=== PATIENT | male | born 1955 | race Caucasian/White ===

== ENCOUNTER 2020-12-19 11:08 | Outpatient (CLI) | payer MEDICARE, SELFPAY ==
[2020-12-19 11:58] LABS: Basophils Absolute Auto 0.03 K/mm3 (0.00-0.10); Basophils Percent Auto 0.4 % (0.0-1.0); Eosinophils Absolute Auto 0.25 K/mm3 (0.02-0.50); Eosinophils Percent Auto 3.3 % (1.0-6.0); Hematocrit 43.5 % (37.0-46.0); Hemoglobin 14.7 g/dL (12.4-15.3); Immature Granulocyte Absolute 0.03 K/mm3 (0.00-0.00); Immature Granulocyte Percent A 0.4 % (0.0-0.0); Immature Reticulocyte Fraction 10.3 % (2.0-16.52); Lymphocytes Absolute Auto 1.93 K/mm3 (1.10-4.50); Lymphocytes Percent Auto 25.4 % (18.0-42.0); Mean Corpuscular HGB Conc 33.8 g/dL (32.0-36.0); Mean Corpuscular Hemoglobin 28.9 pg (27.0-31.0); Mean Corpuscular Volume 85.6 fL (78.0-102.0); Mean Platelet Volume 9.3 fl (8.7-11.0); Monocytes Absolute Auto 0.92 K/mm3 (0.10-0.90); Monocytes Percent Auto 12.1 % (2.0-11.0); Neutrophils Absolute Auto 4.5 K/mm3 (1.7-7.2); Neutrophils Percent Auto 58.4 % (50.0-70.0); Platelet Count Result 334 K/mm3 (150-420); Red Blood Count 5.08 M/mm3 (4.70-6.10); Red Cell Distribution Width 14.7 % (11.6-14.4); Reticulocyte Hemoglobin Conten 32.8 pg (28.0-35.0); Reticulocyte Percent 1.24 % (0.50-1.50); Reticulocytes Absolute 0.06 M/mm3 (0.02-0.1); White Blood Count 7.6 K/mm3 (4.8-10.8)
[2020-12-19 12:49] LABS: CRP 2.1 mg/dL (0.0-0.9); Ferritin 42 ng/mL (26-388); Iron 61 ug/dL (65-175); Percent Iron Saturation 16 % (12-57)
[2020-12-22 22:22] LABS: Methylmalonic Acid 175 nmol/L (87-318)
[2020-12-23 07:25] LABS: Red Blood Cell Folate 735 ng/mL RBC (>280)
== END 2020-12-19 11:09 | disposition home or self-care (01) ==
LOC: CHSLAB 11:14
PROVIDERS: PCP Internal Medicine; Visit Provider Internal Medicine
DX: D64.9 Anemia, unspecified (principal)
CPT/HCPCS: 36415; 82728; 82747; 83540; 83550; 83921; 85025; 85046; 86140

== ENCOUNTER 2020-12-21 13:36 | Outpatient (CLI) | payer MEDICARE, SELFPAY ==
--- NOTE | ~2020-12-21 | CT_ITS ---
EXAMINATION: CT lung screening DATE: 12/21/2020 13:51 INDICATION: Personal history of nicotine dependence, current smoker with 30 pack year history TECHNIQUE: Computed tomography (CT) of the chest was performed without intravenous contrast. The dose -length product (DLP) was 87.48 mGy-cm. Automated exposure control and iterative reconstruction techn ique were employed. COMPARISON: None FINDINGS: There is moderate emphysema. There is a 5 mm nodule of the right lower lobe. Calcified pulm onary nodules and calcified bilateral hilar and mediastinal lymph nodes are consistent with old granu lomatous disease. There is no pleural effusion or pneumothorax. No pathologically enlarged thoracic l ymph nodes are identified. The heart size is normal. Calcified coronary artery atherosclerosis is not ed. There is mild thoracic spondylosis. IMPRESSION: 1. Lung-RADS category 2: Benign appearance or behavior. Continue annual screening with noncontrast lo w-dose chest CT in 12 months. Reviewed, dictated and finalized at location A. IMPRESSION: 1. Lung-RADS category 2: Benign appearance or behavior. Continue annual screeni ng with noncontrast low-dose chest CT in 12 months.
== END 2020-12-21 13:37 | disposition home or self-care (01) ==
LOC: CHSIMG 13:37
PROVIDERS: PCP Internal Medicine; Visit Provider Internal Medicine
DX: Z12.2 Encounter for screening for malignant neoplasm of respiratory organs (principal); Z87.891 Personal history of nicotine dependence
CPT/HCPCS: 71271

== ENCOUNTER 2024-07-31 12:21 | Emergency (ER) | payer MEDICARE, SELFPAY ==
--- NOTE | ~2024-07-31 | XR_ITS ---
Clinical Indication: Cough, shortness of breath PA and lateral views of the chest: Comparison: 01/09/2011 Findings: The lungs are clear, aside from calcified granulomas, without evidence of focal consolidati on or pleural effusion. Cardiomediastinal silhouette is within normal limits. Bones and soft tissues are unremarkable. Impression: No acute abnormality. Prior granulomatous disease. Reviewed, dictated and finalized at location . Impression: No acute abnormality. Prior granulomatous disease.
--- OUTSIDE RECORDS SUMMARY | 2024-07-31 12:23 | XMS_ITS | CONTINUITY OF CARE DOCUMENT ---
Author Name opal joseph Address Unknown Organization [facility] Address [address] [place] [address] Phone [phone] Care Team Providers Care Still Cleaner Tube Name Role Phone Poonam LOGAN, Abhishek Unavailable SATNAM SWARTZ MD Unavailable [phone] SATNAM SWARTZ MD Unavailable PROBLEMS Condition Status Date Provider Notes EKG active Abhishek Levin MD Tobacco abuse active Abhishek Levin MD PVD with claudication active Abhishek Tyson HTN essential active Abhishek Levin MD Hyperlipidemia active Abhishek Levin MD Cardiovascular Condition Screening completed - Abhishek Levin MD Carotid artery stenosis; L I CA 50-69% active Abhishek Levin MD Preoperative cardiovascular examination active Abhishek Levin MD Edema, right foot active Abhishek Levin MD Cardiology examination active Abhishek Levin MD ENCOUNTERS Date Type Provider Location Encounter Diag nosis - In-person encounter Office Visit Abhishek Levin MD [facility] - In-person encounter Office Visit Abhishek Levin MD [facility] Cardiology examination - In-person encounter Office Visit Abhishek Levin MD [facility] Edema, right foot - In-person encounter Office Visit Abhishek Levin MD [facility] - In-person encounter Office Visit Abhishek Levin MD [facility] - In-person encounter Office Visit Abhishek Levin MD [facility] Cardiovascular Condition Screening - In-person encounter Office Visit Abhishek Levin MD [facility] Carotid artery stenosis; L ICA 50-69%Preoperative cardiovascular examination - In-person encounter Office Visit Jessa Garcia MD [facility] - In-person encounter Office Visit Abhishek Levin MD [facility] EKGTobacco abusePVD with claudicationHTN essentialHyperlipidemia VITAL SIGNS Date Observation Value Provider Body Mass Index (Ratio) 27.46 kg/m2 Catherine Levin MD blood pressure, diastolic 68 mm[Hg] Cristina Guevara blood pressure, systolic 138 mm[Hg] Anila Guevara oxygen saturation, oximetry 93 % Abbey Guevara pulse rate 68 /min Abbey Guevara respiratory rate E&M 14 /min Abbey Guevara weight E&M 160 [lb_av] Abbey Guevara height E&M 64 [in_i] Abbeyatiya Guevara blood pressure, cuff size regular An atiya Guevara Body Mass Index (Ratio) 26.50 kg/m2 Catherine Levin MD blood pressure, cuff size regular Richard Irving blood pressure, diastolic 64 mm[Hg] Richard Irving blood pressure, systolic 124 mm[Hg] Fito Irving oxygen saturation, oximetry 98 % Chelsey Irving pulse rate 85 /min Chelsey Irving weight E&M 154.4 [lb_av] Chelsey Irving respiratory rate E&M 12 /min Chelsey Irving height E&M 64 [in_i] Chelsey Irving Body Mass Index (Ratio) 26.77 kg/m2 raine n Poonam LOGAN pulse rate 71 /min Abhishek Poonam LOGAN blood pressure, diastolic 70 mm[Hg] Us huertas Poonam LOGAN blood pressure, systolic 122 mm[Hg] Stephanie mcgrath Poonam LOGAN weight E&M 156 [lb_av] Abhishek Poonam LOGAN Body Mass Index (Ratio) 26.77 kg/m2 Catherine n Poonam LOGAN blood pressure, cuff size regular Ke rri Russell blood pressure, diastolic 70 mm[Hg] Ke rri Mattiuenenfcarli blood pressure, systolic 122 mm[Hg] Alex ri Russell oxygen saturation, oximetry 97 % Meri Wells respiratory rate E&M 12 /min Meri dunn pulse rate 71 /min Meri Sean marceloer weight E&M 156 [lb_av] Meri marceloer height E&M 64 [in_i] Meri Oleanenfe fozia Body Mass Index (Ratio) 25.92 kg/m2 Catherine Levin MD blood pressure, diastolic 73 mm[Hg] [facility] le[facility] Garces blood pressure, systolic 141 mm[Hg] Zainab Garces oxygen saturation, oximetry 98 % Jasmin Garces respiratory rate E&M 18 /min Jasmin reid pulse rate 75 /min Jasmin Garces weight E&M 151 [lb_av] Jasmin Dez height E&M 64 [in_i] Jasmin Dez Body Mass Index (Ratio) 26.09 kg/m2 Catherine Lvein MD blood pressure, diastolic 100 mm[Hg] Li nkLogic blood pressure, systolic 180 mm[Hg] Jaki kLogic blood pressure, cuff size regular Ke rri Gruenenfelder blood pressure, diastolic 100 mm[Hg] Ke rri Gruenenfelder blood pressure, systolic 180 mm[Hg] Ker ri Gruenenfelder oxygen saturation, oximetry 97 % Meri Gruenenfelder respiratory rate E&M 12 /min Meri G ruenenfelder pulse rate 81 /min Meri Gruenenfe lder weight E&M 152 [lb_av] Meri Gruenenfe lder height E&M 64 [in_i] Meri Gruenenfe lder Body Mass Index (Ratio) 27.80 kg/m2 Catherine Levin MD blood pressure, cuff size regular Ke rri Gruenenfelder blood pressure, diastolic 72 mm[Hg] Ke rri Gruenenfelder blood pressure, systolic 137 mm[Hg] Ker ri Gruenenfelder oxygen saturation, oximetry 97 % Meri Gruenenfelder respiratory rate E&M 16 /min Meri G ruenenfelder pulse rate 69 /min Meri Gruenenfe lder weight E&M 162 [lb_av] Meri Gruenenfe lder height E&M 64 [in_i] Meri Gruenenfe lder Body Mass Index (Ratio) 27.12 kg/m2 Jung Garcia MD pulse rate 103 /min [facility] blood pressure, diastolic 78 mm[Hg] Br ittany Block blood pressure, systolic 160 mm[Hg] Aliya ttany [facility] oxygen saturation, oximetry 97 % [facility] weight E&M 158 [lb_av] [facility] respiratory rate E&M 16 /min [facility] height E&M 64 [in_i] [facility] Body Mass Index (Ratio) 26.43 kg/m2 Catherine Levin MD blood pressure, resting Yes [facility] blood pressure, diastolic 73 mm[Hg] To nsha Barry blood pressure, systolic 130 mm[Hg] [facility] oxygen saturation, oximetry 96 % [facility] respiratory rate E&M 16 /min [facility] pulse rate 94 /min [facility] height E&M 64 [in_i] [facility] weight E&M 154 [lb_av] [facility] ALLERGIES No Known Drug Allergies HISTORY OF MEDICATION USE Medication Status Instructions Dates Provider Indications Com ments ezetimibe 10 mg tablet active TAKE 1 TABLET BY MOUTH DAILY Abhishek Levin MD amlodipine 10 mg tablet active TAKE 1 TABLET BY MOUTH EVERY DAY [facility] atorvastatin 20 mg tablet active TAKE 1 TABLET BY MOUTH EVERY DAY [facility] amlodipine 10 mg tablet completed Take 1 tablet by mouth once a day - Nathen primo clopidogrel 75 mg tablet completed TAKE 1 TABLET BY MOUTH EVERY DAY - Abhishek Levin MD clopidogrel 75 mg tablet completed TAKE 1 TABLET BY MOUTH EVERY DAY - Abhishek Levin MD Aspirin Low Dose 81 mg tablet,delayed release (DR/EC) active Take 1 tablet by mouth once a day Raven Wright clopidogrel 75 mg tablet completed Take 1 tablet by mouth once a day - Vanessa Avila ASPIRIN 81 81 MG ORAL TABLET DELAYED RELEASE completed 1 tablet by mouth once a day - Mervat Holguin CILOSTAZOL 50 MG ORAL TABLET completed Take one tablet twice daily - Meri Wells #60, 30 days supply, Prescribed by SATNAM SWARTZ, Filled 12/21/2019 atorvastatin 20 mg tablet completed Take 1 tablet by mouth once a day - Nathenfabiola Pruitterday losartan 100 mg tablet completed Take 1 tablet by mouth once a day - Abhishek Levin MD #90, 90 days supply, Prescribed by SATNAM SWARTZ, Filled 12/06/2019 SOCIAL HISTORY Date Observation Value Provider alcohol use no Abhishek Levin MD smoking/tobacco cess ation, patient education and counseling yes Abhishek Levin MD smoking history, tot al pack/year 365 Abhishek Levin MD smoking history, tot al pack/day 0.5 Abhishek Levin MD cigarette use yes Abhishek Tyson smoking status Current every day smoker Mayank Levin MD alcohol use no Abhishek Levin MD smoking/tobacco cess ation, patient education and counseling yes Abhishek Levin MD smoking history, tot al pack/year 365 Abhishek Levin MD smoking history, tot al pack/day 0.5 Abhishek Levin MD cigarette use yes Abhishek Tyson smoking status Current every day smoker Mayank Levin MD alcohol use no Abhishek Levin MD smoking/tobacco cess ation, patient education and counseling yes Abhishek Levin MD smoking history, tot al pack/year 365 Abhishek Levin MD smoking history, tot al pack/day 0.5 Abhishek Levin MD cigarette use yes Abhishek Tyson smoking status Current every day smoker U toby Levin MD social history E&M S moking History: P atient currently smokes every day. P atient has been counseled to quit. Abhishek Levin MD social history reviewed E&M revi ewed - no changes required Abhishek Levin MD smoking/tobacco cess ation, patient education and counseling yes Jasmin Garces smoking history, tot al pack/year 365 Jasmin Garces smoking history, tot al pack/day 0.5 Jasmin Garces cigarette use yes Jasmin Garces smoking status Current every day smoker S kacie Dez social history E&M S moking History: P atient currently smokes every day. P atient has been counseled to quit. Abhishek Levin MD social history reviewed E&M revi ewed - no changes required Abhishek Levin MD smoking/tobacco cess ation, patient education and counseling yes Meri Wells smoking history, tot al pack/year 365 Meri Wells smoking history, tot al pack/day 0.5 Meri Wells cigarette use yes Meri boyce smoking status Current every day smoker K zack Wells number of grandchildren Abhishek Levin MD U toby Levin MD social history E&M S moking History: P atient currently smokes every day. P atient has been counseled to quit. Abhishek Levin MD social history reviewed E&M revi ewed - no changes required Abhishek Levin MD smoking/tobacco cess ation, patient education and counseling yes Meri Russell smoking history, tot al pack/year 365 Meri Chinocarmenshabanaarjuner smoking history, tot al pack/day 0.5 Meri Chinoreginaldo cigarette use yes Meri Chinolaststormy boyce smoking status Current every day smoker K zack Russell number of grandchildren Jessa Garcia MD social history E&M S moking History: P atient currently smokes every day. P atient has been counseled to quit. Jessa Garcia MD smoking/tobacco cess ation, patient education and counseling yes Jessa Garcia MD smoking status Current every day smoker S ken Garcia MD social history reviewed E&M revi ewed - no changes required Jessa Garcia MD smoking history, tot al pack/year 365 Alia Kristen smoking history, tot al pack/day 0.5 Alia Block cigarette use yes Alia Peterson number of grandchildren Abhishek Levin MD U toby Levin MD smoking/tobacco cess ation, patient education and counseling yes Abhishek Levin MD social history E&M S moking History: P atient currently smokes every day. P atient has been counseled to quit. Abhishek Levin MD social history reviewed E&M revi ewed - no changes required Abhishek Levin MD smoking history, tot al pack/year 365 Varghese Chavis smoking history, tot al pack/day 0.5 Abhishek Levin MD cigarette use yes Tonsdipti Chavis smoking status Current every day smoker T onsha Chavis INSURANCE PROVIDERS Payer name Policy type / Coverage type [employer] party ID [employer]AGE [address] 0 003 (HMO POS) Medicare [id number] ADVANCE DIRECTIVES Name Date DISCUSSED - NO DECISION MADE TREATMENT PLAN Date Name Performer [id number],C, B P today: 141/73 P rior BP: 180/100 (09/25/2022) His updated medication list for this problem includes: Amlodipine 10 Mg Tablet (Amlodipine) ..... Take 1 tablet by mouth once a day Aspirin Low Dose 81 Mg Tablet,delayed Release (dr/ec) (Aspirin) ..... Take 1 tablet by mouth once a day Abhishek Levin MD [id number],Neva,H e had an TAURUS that showed some PAD but the thing that has changed is that his left internal carotid artery is now progressed to greater than 70%. He is sill having no Sx of TIA or CVA. No chest pain. Will check labwork and CT Angio Carotids. Abhishek Levin MD [id number],A dvised him to stay compliant on his statin Abhishek Levin MD [id number],C,will check ca rotid study Abhishek Levin MD [id number],C,S topped his Losartan as he felt it was not helping, will start him on Amlodipine 10 mg for better BP control. BP today: 180/100 P rior BP: 137/72 (06/18/2020) Abhishek Levin MD [id number],C,Denies any cl audication Abhishek Levin MD Cardiology: The Patient was reencouraged to stop smoking. Shira Cano NP Cardiology: B P today: 138/68 P rior BP: 124/64 (12/24/2023) His updated medication list for this problem includes: Amlodipine 10 Mg Tablet (Amlodipine) ..... Take 1 tablet by mouth every day Aspirin Low Dose 81 Mg Tablet,delayed Release (dr/ec) (Aspirin) ..... Take 1 tablet by mouth once a day Shira Cano NP Cardiology: H e had labs in 02/2025 that showed elevated alk phos at 153, LDL 65, TG 68. His updated medication list for this problem includes: Atorvastatin 20 Mg Tablet (Atorvastatin) ..... Take 1 tablet by mouth every day Ezetimibe 10 Mg Tablet (Ezetimibe) ..... Take 1 tablet by mouth daily Shira Cano NP Cardiology: 5 0-69% stenosis L ICA N ow >70% left ica <50% right ica C TA Shira Cano NP Cardiology: S tates that he has more limitation from his sob, states he has claudication sxs at maximal exertion A BIs show patent R SEQUINS WINDER stent A dvised to stop smoking and start zetia for lipid control H e had labs in 02/2025 that showed elevated alk phos at 153, LDL 65, TG 68. Shira Cano NP Cardiology:check car otid in 6 months 5 0-69% stenosis L ICA Abhishek Levin MD Cardiology: H is updated medication list for this problem includes: Amlodipine 10 Mg Tablet (Amlodipine) ..... Take 1 tablet by mouth every day Aspirin Low Dose 81 Mg Tablet,delayed Release (dr/ec) (Aspirin) ..... Take 1 tablet by mouth once a day BP today: 124/64 P rior BP: 122/70 (11/02/2023) Abhishek Levin MD Cardiology:Add zetia L ast LDL 97 H /o Cardiovascular disease Abhishek Levin MD Cardiology:States th at he has more limitation from his sob, states he has claudication sxs at maximal exertion A BIs show patent R SEQUINS WINDER stent A dvised to stop smoking and start zetia for lipid control Abhishek Levin MD Cardiology:The Patie nt was reencouraged to stop smoking. Abhishke Levin MD Cardiology: B P today: 122/70 P rior BP: 122/70 (11/02/2023) Abhishek Levin MD Cardiology:Will chec k venous u/s to check that there is no DVT. Abhishek Levin MD Cardiology:Will check lipid prof ile. Abhishek Levin MD Cardiology:Appears h is symptoms are unchanged. Will repeat TAURUS and check blood work. Abhishek Levin MD Cardiology: B P today: 141/73 P rior BP: 180/100 (09/25/2022) His updated medication list for this problem includes: Amlodipine 10 Mg Tablet (Amlodipine) ..... Take 1 tablet by mouth once a day Aspirin Low Dose 81 Mg Tablet,delayed Release (dr/ec) (Aspirin) ..... Take 1 tablet by mouth once a day Abhishek Levin MD Cardiology:He had an TAURUS that showed some PAD but the thing that has changed is that his left internal carotid artery is now progressed to greater than 70%. He is sill having no Sx of TIA or CVA. No chest pain. Will check labwork and CT Angio Carotids. Abhishek Levin MD Cardiology:Advised h im to stay compliant on his statin Abhishek Levin MD Cardiology:will check carotid st udy Abhishek Levin MD Cardiology:Stopped h is Losartan as he felt it was not helping, will start him on Amlodipine 10 mg for better BP control. BP today: 180/100 P rior BP: 137/72 (06/18/2020) Abhishek Levin MD Cardiology:Denies any claudicati on Abhishek Levin MD Cardiology Follow up : H is updated medication list for this problem includes: Aspirin 81 81 Mg Oral Tablet Delayed Release (Aspirin) ..... One tab by mouth daily Losartan Potassium 100 Mg Oral Tablet (Losartan potassium) ..... Tk 1 t po d hs BP today: 137/72 P rior BP: 160/78 (03/19/2020) Abhishek Levin MD Cardiology Follow up :The Patient was reencouraged to stop smoking. Abhishek Levin MD Cardiology Follow up : H is updated medication list for this problem includes: Atorvastatin Calcium 20 Mg Oral Tablet (Atorvastatin calcium) Abhishek Levin MD Cardiology Follow up :He is clear to stop his ASA, Plavix 7 days prior to dental extraction and should restart when instructed to do so by the dental surgeon Abhishek Levin MD Cardiology Follow up :Is ambulating fine without claudication sx. Will continue with tobacco cessation, statin and DAPT Abhishek Levin MD Cardiology Follow up :Will repeat carotid US to monitor progression of his disease Abhishek Levin MD Cardiology:Recommend to obtain carotid US. 3ppd for 30 years. Now at 1ppd. Jessa Garcia MD Cardiology:The Patie nt was reencouraged to stop smoking. Jessa Garcia MD Cardiology:Elevated today. Pulse is 103. BP today: 160/78 P rior BP: 130/73 (01/19/2020) Jessa Garcia MD Cardiology:Continue statin therapy Jessa Garcia MD Cardiology: C urrently on Pletal. Experiencing numbness and rest pain in the R foot. He cannot walk long distances. TAURUS is 0.33 on R side and 1.03 on L. Will proceed with AIF intervention and LABS: CMP, CBC. March 19, 2020 Successful atherectomy, Shockwave balloon angioplasty to crack the calcium, and stent of the right common femoral and just balloon angioplasty of the distal SFA. The patient will remain on dual antiplatelet therapy, statin and he must stop smoking. Okay to DC pletal. Continue ASA and plavix, adivsed smoking cessation. Jessa Garcia MD Cardiology:.5ppd smoker Abhishek arce MD Cardiology:Currently on Pletal. Experiencing numbness and rest pain in the R foot. He cannot walk long distances. TAURUS is 0.33 on R side and 1.03 on L. Will proceed with AIF intervention and LABS: CMP, CBC. Abhishek Levin MD Date Name CT Angio, Carotids Arterial Duplex Bi-L ower EX Carotid Duplex Bilat eral LIPID PANEL COMPREHENSIVE METABO LIC PANEL, W/EGFR Carotid Duplex Bilat eral LIPID PANEL COMPREHENSIVE METABO LIC PANEL, W/EGFR Venous Doppler Bilat eral LE - Reflux Arterial Duplex Bi-L ower EX CT Angio, Carotids HEMOGLOBIN A1c TSH, free T4, total T3 CRP, high sensitivit y Lipoprotein (a) COMPREHENSIVE METABO LIC PANEL, W/EGFR LIPID PANEL Arterial Duplex Bi-L ower EX Carotid Duplex Bilat eral Arterial Duplex Bi-L ower EX Carotid Duplex Bilat eral Arterial Duplex Bi-L ower EX Complete Echo Carotid Duplex Bilat eral Arterial Duplex to r /o pseudoanuerysm Arterial Duplex to r /o pseudoanuerysm CBC (H/H, RBC, INDIC ES, WBC, PLT) COMPREHENSIVE METABO LIC PANEL, W/EGFR AIF Intervention - S [facility] HISTORY OF PROCEDURES Procedure Date Procedure Name Provider Procedure Notes S tatus Complex e/m visit add on Abhishek Levin MD completed Complex e/m visit add on Abhishek Levin MD completed EKG Abhishek Levin MD completed Complex e/m visit add on Abhishek Levin MD completed EKG Abhishek Levin MD completed EKG Jessa Garcia MD compl eted EKG Abhishek Levin MD completed
--- OUTSIDE RECORDS SUMMARY | 2024-07-31 12:25 | XMS_ITS | CONTINUITY OF CARE DOCUMENT ---
Author Name opal joseph Address Unknown Organization [facility] Address [address] [place] [address] Phone [phone] Care Team Providers Care Tiller Man Name Role Phone Poonam LOGAN, Abhishek Unavailable [phone] SATNAM SWARTZ MD Unavailable [phone] SATNAM SWARTZ MD Unavailable PROBLEMS Condition [...] In-person encounter Office Visit Abhishek Levin MD [facility] - In-person encounter Office Visit Abhishek Levin MD [facility] Cardiology examination - In-person encounter Office Visit Abhishek Levin MD [facility] Edema, right foot - In-person encounter Office Visit Abhishek Levin MD [facility] - In-person encounter Office Visit Abhishek Levin MD [facility] - In-person encounter Office Visit Abhishek Levin MD [facility] Cardiovascular Condition Screening - In-person encounter Office Visit Abhishek Levin MD [facility] Carotid artery stenosis; L ICA 50-69%Preoperative cardiovascular examination - In-person encounter Office Visit Jessa Garcia MD [facility] - In-person encounter Office Visit Abhishek Levin MD [facility] EKGTobacco abusePVD with claudicationHTN essentialHyperlipidemia VITAL [...] blood pressure, cuff size regular Ke rri Rusesll blood pressure, diastolic 70 mm[Hg] Ke rri [...] Body Mass Index (Ratio) 26.09 kg/m2 Catherine Levin MD blood pressure, diastolic 100 mm[Hg] Li [...] Jung Garcia MD pulse rate 103 /min [facility] blood pressure, diastolic 78 mm[Hg] Br ittany Block blood pressure, systolic 160 mm[Hg] Aliya ttany [facility] oxygen saturation, oximetry 97 % [facility] weight E&M 158 [lb_av] [facility] respiratory rate E&M 16 /min [facility] height E&M 64 [in_i] [facility] Body Mass Index (Ratio) 26.43 kg/m2 Catherine Levin MD blood pressure, resting Yes [facility] blood pressure, diastolic 73 mm[Hg] To nsha Bomoseen blood pressure, systolic 130 mm[Hg] Ton [facility] oxygen saturation, oximetry 96 % [facility] respiratory rate E&M 16 /min [facility] pulse rate 94 /min [facility] height E&M 64 [in_i] [facility] weight E&M 154 [lb_av] [facility] ALLERGIES No Known Drug Allergies HISTORY OF MEDICATION USE Medication Status Instructions Dates Provider Indications Com ments ezetimibe 10 mg tablet active TAKE 1 TABLET BY MOUTH DAILY Abhishek Levin MD amlodipine 10 mg tablet active TAKE 1 TABLET BY MOUTH EVERY DAY [facility] atorvastatin 20 mg tablet active TAKE 1 TABLET BY MOUTH EVERY DAY [facility] amlodipine 10 mg tablet completed Take 1 [...] Payer name Policy type / Coverage type [employer] red constitution party ID AARP MEDICARE ADVANTAGE ST 0 003 (HMO POS) Medicare [id number] ADVANCE DIRECTIVES Name Date DISCUSSED - NO DECISION MADE TREATMENT PLAN Date Name Performer [id number],C, B P today: 141/73 P rior BP: 180/100 (09/25/2022) His updated medication list for this problem includes: Amlodipine 10 Mg Tablet (Amlodipine) ..... Take 1 tablet by mouth once a day Aspirin Low Dose 81 Mg Tablet,delayed Release (dr/ec) (Aspirin) ..... Take 1 tablet by mouth once a day Abhishek Levin MD [id number],Neva,H e had an TAURUS that showed some PAD but the thing that has changed is that his left internal carotid artery is now progressed to greater than 70%. He is sill having no Sx of TIA or CVA. No chest pain. Will check labwork and CT Angio Carotids. Abhishek Levin MD [id number],A dvised him to stay compliant on his statin Abhishek Levin MD [id number],C,will check ca rotid study Abhishek Levin MD [id number],C,S topped his Losartan as he felt it was not helping, will start him on Amlodipine 10 mg for better BP control. BP today: 180/100 P rior BP: 137/72 (06/18/2020) Abhishek Levin MD [id number],C,Denies any cl audication Abhishek Levin MD Cardiology: [...] maximal exertion A BIs show patent R EDUCATIONAL ADMINISTRATOR stent A dvised to stop smoking and [...] maximal exertion A BIs show patent R EDUCATIONAL ADMINISTRATOR stent A dvised to stop smoking and start zetia for lipid control Abhishek Levin MD Cardiology:The Patie nt was reencouraged to stop smoking. Abhishek Levin MD Cardiology: B P today: 122/70 [...] check labwork and CT Angio Carotids. Abhishek Leivn MD Cardiology:Advised h im to stay compliant [...]
--- OUTSIDE RECORDS SUMMARY | 2024-07-31 12:25 | XMS_ITS | Clinical Summary ---
Author Organization [facility] Address [address] [place] [address] Care Team Providers Care Alcohol Rubber Name Role Phone Unavailable Primary Care Provider Unavailabl e Encounters Date Type Department Care Team Description 06/27/2024 Transcribe Orders [facility] Scheduling [address] [place] [address] Provider, Not On File Screening for cardiovascular condition (Primary Dx); Bilateral carotid artery stenosis; PVD (peripheral vascular disease) (HCC); Preop examination; Hypertension, unspecified type; Hyperlipidemia, unspecified hyperlipidemia type from Last 3 Months Social History Tobacco Use Types Packs/Day Years Used Date Smoking Tobacco: Never Assessed Sex and Gender Information Value Date Recorded Sex Assigned at Not on file Legal Sex Male 7:14 PM CDT Gender Identity Not on file Sexual Orientation Not on file Plan of Treatment Health Maintenance Due Date Last Done Comments Hepatitis C Virus (HCV) Screening 1955 TdaP Immunization 1955 Colonoscopy 10/23/1999 Colorectal Cancer Screening 10/23/1999 Cologuard 2004 Immunochemical Fecal Occult Blood 2004 Pneumococcal Immunization (5 0+ years) (1 of 1 - PCV) 2004 Zoster Immunization (1 of 2) 2004 PSA Discussion 2009 Influenza Immunization (#1) 2024 SARS-COV-2 Immunization ( - 2023- season) 2024 Respiratory Syncytial Virus (RSV) Immunization (Adult) (1 - 1-dose 75+ series) 2029 Hepatitis B Immunization Aged Out No longer eligible based on patient's age to complete this topic Meningococcal Immunization (ACWY) Aged Out No longer eligible based on patient's age to complete this topic Rotavirus Immunization Aged Out No lo nger eligible based on patient's age to complete this topic
[2024-07-31 12:27] VITALS: BP 152/70; PULSE 70; RESP 20; TEMP 36.7; O2SAT 98
--- NOTE | 2024-07-31 12:30 | ED.GENADULT ---
HPI - General Adult General Chief complaint: Skin/Abscess/Foreign Body Stated complaint: Lips continue to chap Source: patient Mode of arrival: ambulatory Limitations: no limitations History of Present Illness HPI narrative: Pt presents for evaluation of dry chapped lips for the past week. He now has swelling of both lips. He has been applying chapstick frequently. He denies any swelling of the tongue loss sore throat, or difficulty swallowing. He is not on an [place]-inhibitor. He smokes about half a pack per day. He does have chronic problems with sinus congestion and has been using Afrin for several decades. He has problems sleeping when his nasal passages are congested. He is not taking any allergy medication or frequent drugs that have anticholinergic properties. He has a chronic cough and DE LA O. No recent sick contacts to his knowledge. He denies established diagnosis of PITO and denies episodes waking from sleep gasping for air. Related Data Home Medications ?Medication ?Instructions ?Recorded ?Confirmed ?Last Taken ?Type amlodipine 10 mg tablet mg 07/31/24 Unknown History aspirin 81 mg tablet,delayed 81 mg PO DAILY 07/31/24 Unknown History release (Adult Low Dose Aspirin) atorvastatin 20 mg tablet mg 07/31/24 Unknown History ezetimibe 10 mg tablet mg 07/31/24 Unknown History Allergies Allergy/AdvReac Type Severity Reaction Status Date / Time No Known Allergies Allergy Verified 07/31/24 12:31 Review of Systems Review of Systems: CONSTITUTIONAL: Denies fever, chills, or sweats. EYES: Denies visual changes, redness, or discharge. ENT: Reports dried chapped lips which are swollen. Denies rhinorrhea, congestion, sore throat, or otalgia. CARDIOVASCULAR: Denies chest pain, palpitations, or edema. RESPIRATORY: Reports chronic cough and shortness of breath with exertion GASTROINTESTINAL: Denies abdominal pain, nausea, vomiting, or diarrhea. GENITOURINARY: Denies dysuria or hematuria. SKIN: Denies rash or itching. MUSCULOSKELETAL: Denies back pain, joint pain, or myalgia. NEUROLOGIC: Denies headache, numbness, dizziness, or weakness. PSYCHIATRIC: Denies anxiety or depression. [facility] Past Medical History Medical History (Updated 07/31/24 @ 13:54 by Cruz Briones, SCHOOL INSPECTOR, ) Tobacco use Hyperlipidemia Hypertension Surgical History Surgical History No pertinent past surgical history Family History Family History Mother Family history non-contributory Social History Social History Smoking packs per day: 0.5 Smoking cigarettes per day: 10.0 Smoking status: Current every day smoker Substance use: current Substance use type: marijuana Living arrangements: alone Gender identity (if verbalized by the patient): Male Spiritual care concerns: No Exam Narrative: GENERAL: Well-appearing, well-nourished, and in no acute distress. HEAD: Normocephalic, atraumatic. EYES: PERRLA and EOMI. ENT: Lips are dry and chapped. There is trace swelling noted to upper and lower lips. Nares clear, no rhinorrhea or epistaxis. Oropharynx without tonsillar hypertrophy exudate or other lesions. Bilateral TMs pearly pak nonbulging NECK: Supple. No adenopathy or masses. No carotid bruits or JVD CHEST:Cough present one exam. Clear to auscultation. No respiratory distress. No wheezes rales or rhonchi HEART: Regular rate and rhythm. No murmur heard. Normal peripheral pulses. ABDOMEN: Soft, nontender, nondistended, normal active bowel sounds. EXTREMITIES: Normal range of motion. No edema. SKIN: Warm, dry, no rash. NEURO: No focal deficits. Alert and oriented x3. PSYCH: Normal mood and affect. Course Course Emergency Course: This is a 68 year old male who presented for evaluation of lip swelling and irritation. Etiology unclear. CXR with old granulomatous disease. Herpes simplex viral culture was obtained. Perhaps his nasal congestion is contributed to mouth breathing at night. I informed him that Afrin can cause rebound so will switch to flonase. Rough And Ready's Bees or aquaphor may help. Will discharge with a prescription for prednisone. He also has a partial dental plate which could put him at risk for candidiasis so will dc with nystatin. Advised on smoking cessation as nicotine can also cause stomatitis. Advised to follow-up with his primary care provider go to the ER he has difficulty breathing or swallowing. Patient in agreement with plan of care. Level of Care: Express Care Visit Vital Signs Vital signs: Vital Signs Temperature 36.7 C 07/31/24 12:27 Pulse Rate 70 07/31/24 12:27 Respiratory Rate 20 07/31/24 12:27 Blood Pressure 152/70 H 07/31/24 12:27 Pulse Oximetry 98 07/31/24 12:27 Oxygen Delivery Room Air 07/31/24 12:27 Temperature 36.7 C 07/31/24 12:27 Pulse Rate 70 07/31/24 12:27 Respiratory Rate 20 07/31/24 12:27 Blood Pressure 152/70 H 07/31/24 12:27 Pulse Oximetry 98 07/31/24 12:27 Oxygen Delivery Room Air 07/31/24 12:27 Medical Decision Making Vital Signs Vital Signs: Vital Signs Temperature 36.7 C 07/31/24 12:27 Pulse Rate 70 07/31/24 12:27 Respiratory Rate 20 07/31/24 12:27 Blood Pressure 152/70 H 07/31/24 12:27 Pulse Oximetry 98 07/31/24 12:27 Oxygen Delivery Room Air 07/31/24 12:27 Temperature 36.7 C 07/31/24 12:27 Pulse Rate 70 07/31/24 12:27 Respiratory Rate 20 07/31/24 12:27 Blood Pressure 152/70 H 07/31/24 12:27 Pulse Oximetry 98 07/31/24 12:27 Oxygen Delivery Room Air 07/31/24 12:27 Lab Data Labs: Lab Results 07/31/24 07/31/24 Range/Units 13:15 13:28 POC Capillary Glucose 78 (65-105) mg/dl POC SARS CoV-2 Ag Negative (Negative) Imaging Data Radiologist's impression: Clinical Indication: Cough, shortness of breath PA and lateral views of the chest: Comparison: 01/09/2011 Findings: The lungs are clear, aside from calcified granulomas, without evidence of focal consolidation or pleural effusion. Cardiomediastinal silhouette is within normal limits. Bones and soft tissues are unremarkable. Impression: No acute abnormality. Prior granulomatous disease. Discharge Plan Discharge Clinical Impression: Stomatitis Patient Disposition: Home, Self-Care Condition: Stable Instructions: Antibiotic Form, How to Stop Smoking (ED), Oral Mucositis (ED) Additional Instructions: PLEASE STOP AFRIN AND START FLONASE PLEASE DO NOT SMOKE Patient Language: Argentine Prescriptions: New prednisone 50 mg tablet 50 mg PO DAILY Qty: 5 0RF nystatin 100,000 unit/mL suspension 500,000 unit buccal QID 14 Days Qty: 280 0RF Rx Instructions: administer 1/2 of dose in each side of the mouth fluticasone propionate [Flonase Allergy Relief] 50 mcg/actuation spray,suspension 2 spray intranasal DAILY Qty: 16 0RF Rx Instructions: administer into each nostril No Action atorvastatin 20 mg tablet amlodipine 10 mg tablet ezetimibe 10 mg tablet aspirin [Adult Low Dose Aspirin] 81 mg tablet,delayed release (DR/EC) 81 mg PO DAILY Follow-up/Referrals: Vasyl Azevedo MD [Primary Care Provider] - Time of Disposition: 13:56
[2024-07-31 13:18] LABS: Glucose Point of Care 78 mg/dl (65-105)
[2024-07-31 13:29] LABS: EDCOVIDSCREEN Negative (Negative)
== END 2024-07-31 14:06 | disposition home or self-care (01) ==
PROVIDERS: Emergency Provider Nurse Practitioner; PCP Internal Medicine
DX: K12.1 Other forms of stomatitis (principal); Z20.822 Contact with and (suspected) exposure to COVID-19; F17.210 Nicotine dependence, cigarettes, uncomplicated; F12.90 Cannabis use, unspecified, uncomplicated; I10 Essential (primary) hypertension; E78.5 Hyperlipidemia, unspecified
CPT/HCPCS: 71046; 82948; 87140; 87255; 87426; 99203; G0463

== ENCOUNTER 2025-03-29 14:48 | Outpatient (CLI) | payer MEDICARE, SELFPAY ==
--- NOTE | ~2025-03-29 | XR_ITS ---
EXAMINATION: XR chest 2V, 03/29/2025 15:00 CORE BLOWER HISTORY: Chest Pain COMPARISON: No comparisons available. Technique: 2 views obtained. Findings: COPD changes are noted with bilateral scattered subcentimeter calcified granulomas. No pneumothorax. Heart is normal size. Mediastinal and hilar contours are within normal limits. Bony thorax no acute abnormality. Impression: No acute cardiopulmonary abnormality. Reviewed, dictated and finalized at location P. BLOWER Impression: No acute cardiopulmonary abnormality.
--- NOTE | ~2025-03-29 | CT_ITS ---
CTA chest PE protocol HISTORY:DYSPNEA . COMPARISON: CT lung screening 12/21/2020 TECHNIQUE: Following the noncontrasted walnut dehydrator operator, axial images of the thorax were obtained following infusion of 100 cc of Isovue 370. Post-processing on an independent workstation was performed to reconstruct MIP images for evaluation of the thoracic vasculature. FINDINGS: There is no pulmonary embolism, aortic dissection, thoracic aneurysm or pericardial fluid. Centrilobular emphysema present. There are calcified granulomas within the lower lobes bilaterally. No discrete pulmonary nodule seen. There is no acute infiltrate or pleural effusion or pneumothorax. There is no axillary, mediastinal or hilar adenopathy. Limited evaluation of the upper abdomen demonstrates no gross abnormalities. There is interval sclerosis of T6 vertebral body with superior endplate depression suggestive of pathologic fracture. There is also interval compression fracture of T8 vertebral body. If patient has point tenderness follow-up MRI or bone scan can be done to determine chronicity. IMPRESSION: There is no pulmonary embolism, aortic dissection, pericardial fluid or thoracic aneurysm. No acute lung findings. Centrilobular emphysema. Acute appearing compression fracture of T6 and T8 vertebral body. Fracture at T6 appears pathologic. If patient has point tenderness and follow-up MRI or bone scan can be done to determine chronicity. All CT scans at this facility are performed using low dose modulation techniques as appropriate to perform exam including the following: automated exposure control; use of iterative reconstruction technique; adjustment of the mA and/or kV according to patient size (this includes techniques or standardized protocols for targeted exams where dose is matched to indication/reason for exam). Reviewed, dictated and finalized at location S. ER ELECTRICAL IMPRESSION: There is no pulmonary embolism, aortic dissection, pericardial fluid or thoraci c aneurysm. No acute lung findings. Centrilobular emphysema. Acute appearing compression fracture of T6 and T8 vertebral body. Fracture at T 6 appears pathologic. If patient has point tenderness and follow-up MRI or bone scan can be done to determine chronicity. All CT scans at this facility are performed using low dose modulation techniqu es as appropriate to perform exam including the following: automated exposure c ontrol; use of iterative reconstruction technique; adjustment of the mA and/or kV according to patient size (this includes techniques or standardized protocol s for targeted exams where dose is matched to indication/reason for exam).
[2025-03-29 15:03] LABS: Hematocrit 35.2 % (37.0-46.0); Hemoglobin 11.3 g/dL (12.4-15.3); Mean Corpuscular HGB Conc 32.1 g/dL (32-36); Mean Corpuscular Hemoglobin 27.2 pg (27.0-31.0); Mean Corpuscular Volume 84.8 fL (78.0-102.0); Platelet Count Result 393 K/mm3 (150-420); Red Blood Count 4.15 M/mm3 (4.70-6.10); White Blood Count 8.4 K/mm3 (4.8-10.8)
[2025-03-29 15:15] LABS: Alanine Aminotransferase 15 U/L (6-50); Albumin Level 4.6 g/dL (3.5-5.1); Alkaline Phosphatase 125 U/L (38-126); Anion Gap 9 mmol/L (4-12); Aspartate Amino Transferase 26 U/L (17-59); Bilirubin,Total 1.1 mg/dL (0.2-1.3); Blood Urea Nitrogen 14 mg/dL (9-20); Calcium 9.2 mg/dL (8.4-10.2); Carbon Dioxide 28 mmol/L (22-30); Chloride 99 mmol/L (98-107); Creatine Kinase 87 U/L (55-170); Estimated Glomerular Filt Rate > 60; Glucose 102 mg/dL (65-110); Osmolality Calculated 282 mOsm/kg (285-295); Potassium 4.3 mmol/L (3.4-5.0); Sodium 136 mmol/L (137-145); Total Protein 8.0 g/dL (6.3-8.2)
[2025-03-29 15:27] LABS: NT Pro B Type Natriuretic Pept 41 pg/mL (19.9-100); Troponin I < 0.012 ng/mL (0.000-0.034)
--- OUTSIDE RECORDS SUMMARY | 2025-03-30 14:30 | XMS_ITS | Encounter Summary ---
Author Organization [facility] Address [address] [place] [address] Phone Care Team Providers Care Wind Farm Engineer Name Role Phone Vasyl Azevedo MD Primary Care Provider [phone] Encounter Details Date Type Department Care Team (Late st Contact Info) Description 03/27/2025 Orders Only [facility] Medicine Surgery [address] [place] [id number] Sultana Rivers, RN Stenosis of left carotid artery (Primary Dx) Social History Tobacco Use Types Packs/Day Years Used Date Smoking Tobacco: Every Day Cigarettes 0.8 56.8 Started: 1968 Passive Smoke Exposure: Never Smokeless Tobacco: Never Comments:Smoked 3/D at [facility]. Alcohol Use Standard Drinks/Week Comments Never 0 (1 standard drink = 0.6 oz pur e alcohol) AUDIT-C Answer Date Recorded Q1: How often do you have a drink containing alcohol? Never 03/13/2025 Q2: How many drinks containi ng alcohol do you have on a typical day when you are drinking? Patient does not drink Q3: How often do you have si x or more drinks on one occasion? Never 03/13/2025 Personal Safety Answer Date Recorded Have you ever been in or are you currently in a harmful physical or emotional relationship or is someone making you feel afraid or unsafe? Denies 03/16/2025 Sex and Gender Information Value Date Recorded Sex Assigned at Not on file Legal Sex Male 11:03 AM MANAGER REGIONAL Gender Identity Not on file Sexual Orientation Not on file documented as of this encounter Plan of Treatment Upcoming Encounters Date Type Department Care Team (Latest Contact Info) Description 04/04/2025 7:30 AM MANAGER REGIONAL Hospital Encounter [facility] [address] [place] [address] [place] [address] [address] [place] [address] Stenosis of left carotid artery 04/04/2025 7:30 AM MANAGER REGIONAL Anesthesia Event [facility] [address] [place] [address] Lula Byers, STEWARD/STEWARDESS DINING ROOM [phone] [place] [address] 04/04/2025 7:30 AM MANAGER REGIONAL - 04/04/2025 11:35 AM MANAGER REGIONAL Surgery [facility] [address] [place] [id number] [place] [address] [address] [facility] [address] [place] [address] PLACEMENT STENT - CAROTID ARTERY TRANSCERVICAL APPROACH - Hybrid Room Scheduled Orders Name Type Priority Associated Diagnoses Orde r Schedule ECG 12 lead ECG Routine Stenosis of left carotid artery Ordered: 03/27/2025 Scheduled Procedures Name Priority Associated Diagnoses Date/Ti me PLACEMENT STENT - CAROTID ARTERY TRANSCERVICAL APPROACH - HYBRID ROOM Stenosis of left carotid artery 04/04/2025 7:30 AM MANAGER REGIONAL documented as of this encounter Goals Goal Patient Goal Type Associated Problems Recent Progress Patient-Stated? Author Autogenerat ed Goal Care Plan Autogenerated Problem Nga Reyes RN documented as of this encounter Visit Diagnoses Diagnosis Stenosis of carotid artery- Primary Stenosis of left carotid artery Occlusion and stenosis of carotid artery without mention of cerebral infarction Hypertension Unspecified essential hypertension PAD (peripheral artery disease) Unspecified peripheral vascular disease Stenosis of left carotid artery- Primary Occlusion and stenosis of carotid artery without mention of cerebral infarction Stenosis of left carotid artery Occlusion and stenosis of carotid artery without mention of cerebral infarction documented in this encounter Additional Health Concerns Active Problems Noted Date Diagnosed Date Autogenerated Problem 01/09/2025 documented as of this encounter Care Teams Wind Farm Engineer Relationship Specialty Start Date End Date Vasyl Azevedo MD PCP - General 12/06/19 documented as of this encounter
--- OUTSIDE RECORDS SUMMARY | 2025-03-30 14:30 | XMS_ITS | Clinical Summary ---
Author Organization [facility] Address [address] [place] [address] Care Team Providers Care Mucker Cofferdam Name Role Phone Unavailable Primary Care Provider Unavailabl e Social History Tobacco Use Types Packs/Day Years Used Date Smoking Tobacco: Never Assessed Sex and Gender Information Value Date Recorded Sex Assigned at Not on file Legal Sex Male 7:14 PM CDT Gender Identity Not on file Sexual Orientation Not on file Plan of Treatment Health Maintenance Due Date Last Done Comments Hepatitis C Virus (HCV) Screening 1955 TdaP Immunization 1955 Cologuard 10/23/1999 Colonoscopy 10/23/1999 Colorectal Cancer Screening 10/23/1999 Immunochemical Fecal Occult Blood 10/23/1999 Pneumococcal Immunization (5 0+ years) (1 of 1 - PCV) 2004 Zoster Immunization (1 of 2) 2004 Respiratory Syncytial Virus (RSV) Immunization (Adult) (1 - Risk 60-74 years 1-dose series) 2014 Influenza Immunization (#1) 2025 SARS-COV-2 Immunization ( - season) 2025 Hepatitis B Immunization Aged Out No longer eligible based on patient's age to complete this topic Human Papillomavirus (HPV) Immunization Aged Out No longer eligible b ased on patient's age to complete this topic Meningococcal Immunization (ACWY) Aged Out No longer eligible based on patient's age to complete this topic Rotavirus Immunization Aged Out No lo nger eligible based on patient's age to complete this topic
--- OUTSIDE RECORDS SUMMARY | 2025-03-30 14:30 | XMS_ITS | Clinical Summary ---
Author Organization [facility] Main Laura Address [address] [place] [address] Care Team Providers Care Maintenance Supervisor Name Role Phone Santam Swartz MD Primary Care Provider [phone] Allergies No known active allergies Medications ezetimibe (ZETIA) 10 mg tabletIndications:h yperlipidemia Take 1 tablet (10 mg total) by mouth daily after lunch Takes arounf 3 pm Active atorvastatin (LIPITOR) 20 mg tabletIndications:h yperlipidemia Take 1 tablet (20 mg total) by mouth daily after lunch Takes around 4 pm Active aspirin (Ann Low Dose Aspirin) 81 mg enteric coated tabletIndications:p revention of thrombosis,HX stent in right leg Take 1 tablet (81 mg total) by mouth every morning 02/07/20 20 Active amLODIPine (NORVASC) 10 mg tabletIndications:h ypertension Take 1 tablet (10 mg total) by mouth with lunch Active oxymetazoline (AFRIN) 0.05 % nasal sprayIndications:Al dilip Administer 2 sprays into each nostril 2 (two) times a day as needed Active clopidogreL (PLAVIX) 75 mg tabletIndications:C erebral Thromboembolism Prevention Take 1 tablet (75 mg total) by mouth daily 90 tablet 3 02/01/20 25 026 Active nitroglycerin (NITROSTAT) 0.[address] 1 tablet (0.4 mg total) under the tongue every 5 (five) minutes as needed for chest pain 90 tablet 02/13/20 25 026 Active isosorbide mononitrate ER (IMDUR) 30 mg 24 hr tablet Take 1 tablet (30 mg total) by mouth every morning 02/25/20 25 Active Active Problems Problem Noted Date Diagnosed Date Chest pain 03/10/2025 Edema 11/02/2023 Stenosis of carotid artery 06/18/2020 Assessment & Plan (03/06/2025 7:29 AM CDT): Hx carotid US: Left ICA stenosis 70-99%. Right ICA stenosis <50% stenosis. To OR 03/07 for TCAR -Post op to 75OU for q2 NV checks -Monitor incision -SBP goal 110-150 -Continue ASA, statin -Resume home meds as able -Bedrest overnight -D/C curry after completion of bedrest -Clear liquid diet, advance as able Preoperative cardiovascular examination 01/19/20 Hyperlipidemia 01/19/2020 PAD (peripheral artery disease) 01/19/2020 Assessment & Plan (03/06/2025 7:31 AM CDT): Hx PAD with prior [employer] stent placement -Continue ASA and statin -Plavix as able Hypertension 01/19/2020 Assessment & Plan (03/06/2025 7:28 AM CDT): Home regimen: amlodipine 10 mg daily -Resume post op as BP allows -Goal 110-150 Tobacco dependence syndrome 01/19/2020 Encounters Date Type Department Care Team Description 03/27/2025 Orders Only [facility] Medicine Surgery [address] [facility] Floor 1 [place] [address] Sultana Rivers RN Stenosis of left carotid artery (Primary Dx) 03/16/2025 10:30 AM CDT - 03/16/2025 12:00 PM CDT Surgery [facility] Cardiac Catheterization Lab [address] [place] [address] Abhishek Levin MD LEFT HEART CATHETERIZATION WITH CORONARY ANGIOGRAPHY AND WITH OR WITHOUT LEFT VENTRICULOGRAM [id number] 03/16/2025 7:41 AM CDT - 03/16/2025 1:27 PM CDT Hospital Encounter [facility] Cardiac Catheterization Lab [address] [place] [address] Abhishek Levin MD Chest pain Discharge Disposition: Discharge to home or self care 03/10/2025 Orders Only [facility] Cardiac Catheterization Lab [address] [place] [address] Abhishek Levin MD Chest pain (Primary Dx) 03/07/2025 9:50 AM CDT Lab [address] [phone] 03/06/2025 Telephone [facility] Medicine Surgery [address] [place] [address] Office [facility] [address] [place] [phone] Kaycee Childers NP 03/06/2025 Orders Only [facility] Surgery [address] [place] [address] [place] [phone] Abhishek Levin MD 03/01/2025 Telephone [facility] Medicine Surgery [address] [place] [address] [place] [phone] Juliana Deshpande RMA STRESS TEST RESULTS 02/28/2025 [facility] [address] [place] [address] [place] [phone] Juliana Deshpande RMA TESTING REQUEST/CLEARANCE (/) 02/13/2025 [facility] Post Discharge Follow up phone call [facility] Emergency Department [address] [place] [phone] Esperanza Damian RN 02/13/2025 Telephone [facility] Surgery [address] [place] [address] [address] [place] [phone] Kaycee Childers NP 02/13/2025 Telephone [facility] Surgery [address] [place] [address] [place] [phone] Juliana Deshpande RMA CARDIAC CLEARANCE 02/12/2025 10:40 AM CDT - 02/12/2025 4:52 PM CDT Emergency [facility] Emergency Department [address] [place] [phone] Gauri Atwood MD Lamb, Sean James, MD Stable angina (Primary Dx) Discharge Disposition: Discharge to home or self care 01/31/2025 [facility] [address] [place] [address] Office [address] [place] [phone] Juliana Deshpande RMDena Surgery Confirmation 01/31/2025 [facility] [address] [place] [address] Office Building [address] [place] [phone] Kaycee Childers NP 01/26/2025 3:30 PM CDT Pre-Admission Testing [facility] Center for Preoperative Assessment and Planning [facility] Advanced Medicine ([facility]) [address] [place] [phone] Preoperative testing (Primary Dx) 01/20/2025 2:30 PM CDT Ancillary Procedure [facility] Medicine Vascular Lab [address] [place] [address] [address] [place] [phone] Bilateral carotid artery stenosis 01/11/2025 [facility] [address] [place] [address] Office Building [address] [place] [phone] Kaycee Childers NP 01/09/2025 2:30 PM CDT Office Visit [facility] Medicine Surgery [address] [place] [address] Office Building [address] [place] [phone] Sundeep Olivares MD Bilateral carotid artery stenosis (Primary Dx) 01/09/2025 1:16 PM CDT - 01/09/2025 11:59 PM CDT Hospital Encounter [facility] Imaging and Radiology [id number] [place] [phone] Stenosis of left carotid artery Discharge Disposition: Discharge to home or self care 01/03/2025 [facility] [address] [place] [address] Office [facility] [address] [place] [phone] Sundeep Olivares MD Stenosis of left carotid artery (Primary Dx) from Last 3 Months Immunizations Immunization Administration Dates Next Due Pfizer SARS-CoV-2 Monovalent Vaccination (12+ Yrs) PURPLE 08/29/2020,08/08/2020 Surgical History Surgery Date Site/Laterality Comments FEMORAL ARTERY STENT Right CARDIAC CATHETERIZATION 03/16/2025 N/A Procedure: LEFT HEART CATHETERIZATION WITH CORONARY ANGIOGRAPHY AND WITH OR WITHOUT LEFT VENTRICULOGRAM [id number]; Surgeon: Abhishek Levin MD; 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 Gender Identity Not on file Sexual Orientation Not on file Last Filed Vital Signs Vital Sign Reading Time Taken Comments Blood Pressure 143/76 03/16/2025 12:55 PM CDT Pulse 65 03/16/2025 1:00 PM CDT Temperature 36.9 C (98.4 F) 03/16/2025 8:04 AM CDT Respiratory Rate 18 03/16/2025 8:04 AM CDT Oxygen Saturation 94% 03/16/2025 1:00 PM CDT Inhaled Oxygen Concentration - - Weight 68.5 kg (151 lb) 03/16/2025 8:04 AM CDT Height 162.6 cm (5' 4) 03/16/2025 8:04 AM CDT Body Mass Index 25.92 03/16/2025 8:04 AM CDT Plan of Treatment Upcoming Encounters Date Type Department Care Team (Latest Contact Info) Description 04/04/2025 7:30 AM FRESH FOODS TECHNICIAN Hospital Encounter [facility] Operating Room 1 [place] [address] [place] [address] [address] [place] [address] Stenosis of left carotid artery 04/04/2025 7:30 AM FRESH FOODS TECHNICIAN Anesthesia Event [facility] Operating Room 1 [place] [phone] Lula Byers, PRACTICE BILLING ASSOCIATE [address] [facility] [phone] [place] [address] 04/04/2025 7:30 AM FRESH FOODS TECHNICIAN - 04/04/2025 11:35 AM FRESH FOODS TECHNICIAN Surgery [facility] Operating Room 1 [place] [phone] [place] [address] [address] [place] [address] PLACEMENT STENT - CAROTID ARTERY TRANSCERVICAL APPROACH - Hybrid Room Scheduled Procedures Name Priority Associated Diagnoses Date/Ti me PLACEMENT STENT - CAROTID ARTERY TRANSCERVICAL APPROACH - HYBRID ROOM Stenosis of left carotid artery 04/04/2025 7:30 AM 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 TECHNICIAN Health Maintenance Due Date Last Done Comments Depression Screening 1955 Hepatitis C Screening 1955 Hepatitis B Screening 1972 Pneumococcal vaccine 65+ (1 of 2 - PCV) 1973 Zoster Vaccine (2 of 3) 12/02/2013 10/07/2013 Lung Cancer Screening 10/13/2014 10/13/2013 Abdominal Aortic Aneurysm (AAA) Screen 10/23/2019 Well Visit 65+ 10/23/2019 DTaP/Tdap/Td Vaccine (2 - Td or Tdap) 10/08/2023 Colon Cancer Screening-Colonoscopy 10/13/20242014, 10/13/2014 Covid-19 Vaccine ( season) 01/23/202511/2020, 08/08/2020 Influenza Vaccine (#1) 2025 Fall Risk Assessment 03/16/2026 03/16/2025 Colon Cancer Screening-CT Colonography Discontinued , 10/13/2014 Colon Cancer Screening-DNA Stool Discontinued 10/14/19, 10/13/2014 Colon Cancer Screening-FIT Discontinued 10/13/2014, Colon Cancer Screening-Sigmoidoscopy Discontinued 09/23, 10/13/2014 Prostate Cancer Screening-PSA Discontinued 12/10/2020, 12/06/2019 Goals Goal Patient Goal Type Associated Problems Recent Progress Patient-Stated? Author Autogenerat ed Goal Care Plan Autogenerated Problem No Nga Hauser RN Medical Devices Implanted Type Area Youth Career Specialist Device Identifier Shelf Expiration Date Model / Serial / Lot Stent Right: Leg Procedures Procedure Name Priority Date/Time Associated Diagnosis Comments LEFT HEART CATHETERIZATION WITH CORONARY ANGIOGRAPHY AND WITH AND WITHOUT LEFT VENTRICULOGRAM Routine 03/16/2025 10:56 AM CDT Chest pain EGFR Routine 03/07/2025 9:55 AM CDT DIFFERENTIAL AUTO Routine 03/07/2025 9:5 5 AM CDT PROTIME-INR Routine 03/07/2025 9:55 AM CDT LIPID PANEL Routine 03/07/2025 9:55 AM CDT CBC WITH AUTO DIFFERENTIAL Routine 03/07/2025 9:55 AM CDT BASIC METABOLIC PANEL Routine 03/07/2025 9:55 AM CDT MYOCARDIAL SCAN, PERFUSION Routine 02/28/2025 12:48 PM CDT TROPONIN T HIGH-SENSITIVITY 2-HOUR Timed 02/12/2025 2:33 PM CDT EGFR STAT 02/12/2025 11:26 AM CDT DIFFERENTIAL AUTO STAT 02/12/2025 11: 26 AM CDT PROTIME-INR STAT 02/12/2025 11:26 AM CDT PRO B-TYPE NATRIURETIC PEPTIDE STAT 02/12/2025 11:26 AM CDT TROPONIN T HIGH-SENSITIVITY SERIES (BASELINE, 2HR, 4HR, 6HR) STAT 02/12/2025 11:26 AM CDT COMPREHENSIVE METABOLIC PANEL STAT 02/12/2025 11:26 AM CDT CBC WITH AUTO DIFFERENTIAL STAT 02/12/2025 11:26 AM CDT XR CHEST PA LATERAL 2 VIEWS ED 02/12/2025 11:23 AM CDT ECG 12-LEAD STAT 02/12/2025 10:43 AM CDT EGFR Routine 01/26/2025 4:16 PM CDT Preoperative testing DIFFERENTIAL AUTO Routine 01/26/2025 4:1 6 PM CDT Preoperative testing URINALYSIS, MICROSCOPIC ONLY Routine 01/26/2025 4:16 PM CDT Preoperative testing BASIC METABOLIC PANEL Routine 01/26/2025 4:16 PM CDT Preoperative testing CBC WITH AUTO DIFFERENTIAL Routine 01/26/2025 4:16 PM CDT Preoperative testing URINALYSIS AND REFLEX TO MICROSCOPIC AND CULTURE Routine 01/26/2025 4:16 PM CDT Preoperative testing US CAROTIDS DUPLEX BILATERAL Schedule Routine, Read Routine (OP Routine) 01/20/2025 3:00 PM CDT Bilateral carotid artery stenosis CTA HEAD NECK W WO CONTRAST Schedule Routine, Read Routine (OP Routine) 01/09/2025 1:43 PM CDT Stenosis of left carotid artery PSA SCREEN Routine 12/10/2020 10:16 AM CDT COLONOSCOPY IMAGES 10/13/2014 LUNG COMPUTED TOMOGRAPHY (CT) Routine 10/13/2013 12:27 PM CDT from Last 3 Months or Most Recently Relevant to Health Maintenance Results * LEFT HEART CATHETERIZATION WITH CORONARY ANGIOGRAPHY AND WITH AND WITHOUT LEFT VENTRICULOGRAM (03/16/2025 10:56 AM CDT) Anatomical Region Laterality Modality X-Ray Angiograph y Narrative 03/16/2025 11:12 AM CDT Findings: 69-year-old male who has peripheral arterial disease and also has a carotid stenosis who was having chest pain and I recommended doing a stress test that was abnormal. Prior to clearing him for his carotid stent I recommended doing a cardiac catheterization he understood the potential risks and benefits and wished to proceed. Prepped and draped in the usual sterile fashion. We accessed the right radial and we placed a 6 Terumo sheath. Passed a 5 Vietnamese JL 3.5 engaged the left main and did diagnostic angiography and exchanged over an exchange length wire for a JR4 engaged the right and did diagnostic angiography. Finally exchanged with the same exchange length wire for a pigtail and did ventriculography and hemodynamics. At the end of the procedure we removed the sheath after we had removed the pigtail over the J-wire and we applied a TR band. Findings: Aortic pressure 111/50 LV 112/26 Coronary angiography demonstrates moderate calcification left main has minimal disease the LAD has a proximal 30 mid 40 and then further down 30. The left circ had a mid 30% and a distal 60% lesion. RCA is a moderate-sized diffusely diseased vessel with a 40% mid 30% distal LV demonstrates normal-sized normal wall motion EF 55-60% Impression nonobstructive coronary disease with no angina Would recommend treating the patient medically and to proceed with a carotid stent us Abhishek Levin MD CV CARDIAC CATH PROCEDURES Final Result * eGFR (03/07/2025 9:55 AM CDT) eGFR >90 >=60 mL/min/1. 73 m2 Comment: Interpretive Data Reference Interval Normal >/= 90 mL/min/1.73m2 Mildly decreased* 60 - 89 mL/min/1.73m2 Mildly to moderately decreased 45 - 59 mL/min/1.73m2 Moderately to severely decreased 30 - 44 mL/min/1.73m2 Severely decreased 15 - 29 mL/min/1.73m2 Kidney Failure < 15 mL/min/1.73m2 *Relative to young adult level Estimated glomerular filtration rate is determined by the 2020 CKD-EPI equation recommended by the National Kidney Foundation (A Unifying Approach to GFR Estimation: Recommendations of the NKF-ASK Task Force on Reassessing the Inclusion of Race in Diagnosing Kidney Disease, JASN 2020). The CKD-EPI equation should not be used for patients with unstable renal function and has not been validated in children and those over 70. Current interpretive data was last reviewed 2021. Blood 03/07/2025 9:55 AM CDT 03/07/2025 10:32 AM CDT Abhishek Levin MD LAB BLOOD ORDERABLES Final Resul t [facility] 1 [facility] [place] [address] * (ABNORMAL) Differential, auto (03/07/2025 9:55 AM CDT) Neutrophil abs 4.76 1.50 - 6.50 K/cumm Imm gran abs 0.03 0.00 - 0.10 K/cumm [facility] ([place]) Lymphocyte abs 1.75 0.80 - 3.30 K/cumm [facility] ([place]) Monocyte abs 1.17(H) 0.20 - 0.80 K/cumm [facility] ([place]) Eosinophil abs 0.25 0.00 - 0.50 K/cumm [facility] ([place]) Basophil abs 0.03 0.00 - 0.10 K/cumm [facility] ([place]) Neutrophil pct 59.6 % [facility] ([place]) Comment: Interpretive Data Percent cell count reference ranges are not reported, since discordance with absolute values may lead to misinterpretation of CBC data. Current Interpretive Data was last revised on 2017. Imm gran pct 0.4 % [facility] ([place]) Comment: Interpretive Data Percent cell count reference ranges are not reported, since discordance with absolute values may lead to misinterpretation of CBC data. Current Interpretive Data was last revised on 2017. Lymphocyte pct 21.9 % [facility] ([place]) Comment: Interpretive Data Percent cell count reference ranges are not reported, since discordance with absolute values may lead to misinterpretation of CBC data. Current Interpretive Data was last revised on 2017. Monocyte pct 14.6 % [facility] ([place]) Comment: Interpretive Data Percent cell count reference ranges are not reported, since discordance with absolute values may lead to misinterpretation of CBC data. Current Interpretive Data was last revised on 2017. Eosinophil pct 3.1 % [facility] ([place]) Comment: Interpretive Data Percent cell count reference ranges are not reported, since discordance with absolute values may lead to misinterpretation of CBC data. Current Interpretive Data was last revised on 2017. Basophil pct 0.4 % [facility] ([place]) Comment: Interpretive Data Percent cell count reference ranges are not reported, since discordance with absolute values may lead to misinterpretation of CBC data. Current Interpretive Data was last revised on 2017. Blood 03/07/2025 9:55 AM CDT 03/07/2025 10:32 AM CDT us Abhishek Leivn MD LAB BLOOD ORDERABLES Final Resul t [facility] ([place]) 1 [facility] Department [place] [address] * (ABNORMAL) CBC with auto differential (03/07/2025 9:55 AM CDT) WBC 7.99 3.80 - 9.90 K/cumm Hgb 11.4(L) 13.0 - 17.5 g/dL [facility] ([place]) Hct 35.2(L) 38.9 - 50.3 % [facility] ([place]) Plt 405(H) 150 - 400 K/cumm [facility] ([place]) MPV 8.7(L) 9.1 - 12.3 fL [facility] ([place]) RBC 4.18(L) 4.30 - 5.80 M/cumm [facility] ([place]) MCV 84.2 81.3 - 96.4 fL [facility] ([place]) MCH 27.3 27.1 - 33.3 pg [facility] ([place]) MCHC 32.4 32.3 - 35.7 g/dL [facility] RDW CV 14.8 11.1 - 14.9 % [facility] RDW SD 45.2 35.7 - 48.1 fL [facility] NRBC abs 0.00 0.00 - 0.01 K/cumm [facility] Blood 03/07/2025 9:55 AM CDT 03/07/2025 10:32 AM CDT Abhishek Levin MD LAB BLOOD ORDERABLES Final Resul t [facility] ([place]) 1 [facility] [place] [address] * Protime-INR (03/07/2025 9:55 AM CDT) PT 12.4 10.2 - 13.5 sec [facility] INR 1.10 0.90 - 1.20 [facility] ([place] Comment: Interpretive data Oral anticoagulant therapeutic ranges: Venous thromboembolism prophylaxis or treatment: 2.0-3.0 CARDIOLOGY Standard range: 2.0-3.0 High-intensity range: 2.5-3.5 Refer to indication-specific guidelines for appropriate target ranges for prosthetic heart valve replacement. Current interpretive data was last revised on 2019. Blood 03/07/2025 9:55 AM CDT 03/07/2025 10:32 AM CDT Abhishek Levin MD LAB BLOOD ORDERABLES Final Resul t [facility] ([place]) 1 [facility] Department [place] [address] * Lipid panel (03/07/2025 9:55 AM CDT) Cholesterol 120 30 - 199 mg/dL Comment: Interpretive Data Ages < or = 19 years Acceptable: <170 mg/dL Borderline high: 170-199 mg/dL High: >or= 200 mg/dL Ages > or = 20 years Desirable: <200 mg/dL Borderline high: 200-239 mg/dL High: >or= 240 mg/dL Literature References: 1. Expert Panel on Integrated Guidelines for Cardiovascular Health and Risk Reduction in Children and Adolescents. Pediatrics 2011;128:S213 2. NCEP Expert Panel. Circulation 2004;110:227 Current Interpretive Data was last revised on 2018. Triglycerides 64 <=149 mg/dL [facility] ([place]) Comment: Interpretive Data Ages < or = 9 years Acceptable: <75 mg/dL Borderline high: 75-99 mg/dL High: >or= 100 mg/dL Ages 10 to 20 years Acceptable: <90 mg/dL Borderline high: 90-129 mg/dL High: >or= 130 mg/dL Ages > or = 20 years Desirable: <150 mg/dL Borderline high: 150-199 mg/dL High: 200-499 mg/dL Very high: >or= 499 mg/dL Literature References: 1. Expert Panel on Integrated Guidelines for Cardiovascular Health and Risk Reduction in Children and Adolescents. Pediatrics 2011;128:S213 2. NCEP Expert Panel. Circulation 2004;110:227 Current Interpretive Data was last revised on 2018. HDL 47 >=40 mg/dL [facility] ([place]) Comment: Interpretive Data Ages < or = 19 years Acceptable: >45 mg/dL Borderline low: 40-45 mg/dL Low: <40 mg/dL Ages > or = 20 years Desirable: >or= 60 mg/dL Low: <40 mg/dL Literature References: 1. Expert Panel on Integrated Guidelines for Cardiovascular Health and Risk Reduction in Children and Adolescents. Pediatrics 2011;128:S213 2. NCEP Expert Panel. Circulation 2004;110:227 Current Interpretive Data was last revised on 2018. LDL, calculated 59 <=129 mg/dL [facility] ([place]) Comment: Interpretive Data Ages < or = 19 years Acceptable: <110 mg/dL Borderline high: 110-129 mg/dL High: >or= 130 mg/dL Ages > or = 20 years Optimal: <100 mg/dL Near optimal: 100-129 mg/dL Borderline high: 130-159 mg/dL High: >160 mg/dL Calculated using the Arthur LDL-C estimating equation. This equation was implemented on 2024. Prior to this date LDL-C was estimated using the Friedewald equation. Literature References: 1. Expert Panel on Integrated Guidelines for Cardiovascular Health and Risk Reduction in Children and Adolescents. Pediatrics 2011;128:S213 2. NCEP Expert Panel. Circulation 2004;110:227 3. Arthur Mars al. QIANA Cardiol. 2019September 22;5(5):540-548. doi: 10.1001/jamacardio.2020.0013 Current Interpretive Data was last revised on 2024. Non-HDL Cholesterol 73 mg/dL [facility] ([place]) Comment: Interpretive Data Ages < or = 19 years Acceptable: <120 mg/dL Borderline high: 120-144 mg/dL High: >145 mg/dL Ages > or = 20 years When triglycerides are >200 mg/dL, Non-HDL cholesterol is a secondary target of therapy with treatment goals that are 30 mg/dL greater than the LDL cholesterol target. Literature References: 1. Expert Panel on Integrated Guidelines for Cardiovascular Health and Risk Reduction in Children and Adolescents. Pediatrics 2011;128:S213 2. NCEP Expert Panel. Circulation 2004;110:227 Current Interpretive Data was last revised on 2018. Chol/HDL ratio 3 [facility] ([place]) Blood 03/07/2025 9:55 AM CDT 03/07/2025 10:32 AM CDT Abhishek Levin MD LAB BLOOD ORDERABLES Final Resul t [facility] ([place]) 1 [facility] [employer] [place] [address] * (ABNORMAL) Basic metabolic panel (03/07/2025 9:55 AM CDT) Sodium 136 135 - 145 mmol/L Potassium, pl 4.2 3.3 - 4.9 mmol/L [facility] ([place]) Chloride 99 97 - 110 mmol/L [facility] ([place]) CO2 26 22 - 32 mmol/L [facility] ([place]) Anion gap 11 2 - 15 mmol/L [facility] ([place]) BUN 9 6 - 25 mg/dL [facility] ([place]) Creatinine 0.69(L) 0.80 - 1.30 mg/dL [facility] ([place]) Glucose 95 70 - 199 mg/dL [facility] ([place]) Comment: Interpretive Data Fasting glucose >/= 126 mg/dl is diagnostic for diabetes. Fasting is defined as no caloric intake for at least 8 hours. Fasting glucose between 100 mg/dl to 125 mg/dl is diagnostic of prediabetes. In a patient with classic symptoms of hyperglycemia or hyperglycemic crisis, a random glucose >/= 200 mg/dl is diagnostic for diabetes. In the absence of unequivocal hyperglycemia, results should be confirmed by repeat testing. The classification and Diagnosis of Diabetes Diabetes Care 202; 46: S19-S40. Current interpretive data was last revised 2022. Calcium 9.5 8.5 - 10.3 mg/dL [facility] ([place]) Blood 03/07/2025 9:55 AM CDT 03/07/2025 10:32 AM CDT Abhishek Levin MD LAB BLOOD ORDERABLES Final Resul t [facility] ([place]) 1 [facility] [place] [address] * Myocardial Scan, Perfusion (02/28/2025 12:48 PM CDT) Anatomical Region Laterality Modality Other Abhishek Levin MD CV STRESS PROCEDURES Final Resul t * Troponin T high-sensitivity 2-hour (02/12/2025 2:33 PM CDT) Trop T hs 14 <=22 ng/L Comment: Interpretive Data For further hscTnT resources including the diagnostic algorithm and an aid in interpretation, copy and paste this link: [email or web address]/show/[email or web address] Current Interpretive Data last revised 2020. Trop T hs delta See Comment ng/L JACK Comment:Inappropriate collec tion time to report a delta. Trop T hs pct delta See Comment % JACK Comment:Inappropriate collec tion time to report a delta. Trop T hs interp See Comment [facility] Comment:Inappropriate collec tion time to report a delta. Blood 02/12/2025 2:33 PM CDT 02/12/2025 2:37 PM CDT Gauri Atwood MD LAB BLOOD ORDERABLES Kinga l Result Performing Organization Address [facility] Co de Phone Number [facility] [address] [place] [address] * Troponin T high-sensitivity series (baseline, 2hr, 4hr, 6hr) (02/12/2025 11:26 AM CDT) Trop T hs 13 <=22 ng/L Comment: Interpretive Data For further hscTnT resources including the diagnostic algorithm and an aid in interpretation, copy and paste this link: [email or web address]/show/[email or web address] Current Interpretive Data last revised 2020. Blood 02/12/2025 11:2 6 AM CDT 02/12/2025 11:49 AM CDT Gauri Atwood MD LAB BLOOD ORDERABLES Edit ed Result - Final [facility] [address] [facility] [place] [address] * eGFR (02/12/2025 11:26 AM CDT) eGFR >90 >=60 mL/min/1. 73 m2 Comment: Interpretive Data Reference Interval Normal >/= 90 mL/min/1.73m2 Mildly decreased* 60 - 89 mL/min/1.73m2 Mildly to moderately decreased 45 - 59 mL/min/1.73m2 Moderately to severely decreased 30 - 44 mL/min/1.73m2 Severely decreased 15 - 29 mL/min/1.73m2 Kidney Failure < 15 mL/min/1.73m2 *Relative to young adult level Estimated glomerular filtration rate is determined by the 2020 CKD-EPI equation recommended by the National Kidney Foundation (A Unifying Approach to GFR Estimation: Recommendations of the NKF-ASK Task Force on Reassessing the Inclusion of Race in Diagnosing Kidney Disease, JASN 2020). The CKD-EPI equation should not be used for patients with unstable renal function and has not been validated in children and those over 70. Current interpretive data was last reviewed 2021. Blood 02/12/2025 11:2 6 AM CDT 02/12/2025 11:49 AM CDT us Gauri Atwood MD LAB BLOOD ORDERABLES Kinga bustos Result [facility] [address] Department [place] [address] * (ABNORMAL) Differential, auto (02/12/2025 11:26 AM CDT) Neutrophil abs 4.80 1.50 - 6.50 K/cumm Imm gran abs 0.02 0.00 - 0.10 K/cumm [facility] Lymphocyte abs 1.51 0.80 - 3.30 K/cumm [facility] Monocyte abs 1.07(H) 0.20 - 0.80 K/cumm [facility] Eosinophil abs 0.18 0.00 - 0.50 K/cumm [facility] Basophil abs 0.05 0.00 - 0.10 K/cumm [facility] Neutrophil pct 62.8 % [facility] Comment: Interpretive Data Percent cell count reference ranges are not reported, since discordance with absolute values may lead to misinterpretation of CBC data. Current Interpretive Data was last revised on 2017. Imm gran pct 0.3 % [facility] Comment: Interpretive Data Percent cell count reference ranges are not reported, since discordance with absolute values may lead to misinterpretation of CBC data. Current Interpretive Data was last revised on 2017. Lymphocyte pct 19.8 % [facility] Comment: Interpretive Data Percent cell count reference ranges are not reported, since discordance with absolute values may lead to misinterpretation of CBC data. Current Interpretive Data was last revised on 2017. Monocyte pct 14.0 % [facility] Comment: Interpretive Data Percent cell count reference ranges are not reported, since discordance with absolute values may lead to misinterpretation of CBC data. Current Interpretive Data was last revised on 2017. Eosinophil pct 2.4 % [facility] Comment: Interpretive Data Percent cell count reference ranges are not reported, since discordance with absolute values may lead to misinterpretation of CBC data. Current Interpretive Data was last revised on 2017. Basophil pct 0.7 % [facility] Comment: Interpretive Data Percent cell count reference ranges are not reported, since discordance with absolute values may lead to misinterpretation of CBC data. Current Interpretive Data was last revised on 2017. Blood 02/12/2025 11:2 6 AM CDT 02/12/2025 11:49 AM CDT us Gauri Atwood MD LAB BLOOD ORDERABLES Kinga l Result JACK [address] Department [place] [address] * Pro B-type natriuretic peptide (02/12/2025 11:26 AM CDT) NT-proBNP <36 <=300 pg/mL Comment: Interpretive Comments: A. Dyspnea in Acute Care Setting All Ages: < 300 pg/ml, acute heart failure unlikely. < 50 yrs: 300 - 450 pg/ml, further investigation warranted. > 450 pg/ml, acute heart failure likely. 50 - 74 yrs: 300 - 900 pg/ml, further investigation warranted. > 900 pg/ml, acute heart failure likely . > or = 75 yrs: 450 - 1800 pg/ml, further investigation warranted. > 1800 pg/ml, acute heart failure likely. B. Non-acute Setting < 75 yrs < 125 pg/ml, rules out heart failure. > or = 125 pg/ml, further investigation warranted. > or = 75 yrs < 450 pg/ml, rules out heart failure. > or = 450 pg/ml, further investigation warranted. - Knowledge of each individual patient's NT-proBNP range may be more useful than using similar cut-points for every patient. Please note that marked elevations in NT-proBNP levels may be observed in state other than Left Ventricular Congestive Failure, including: acute coronary syndromes, right heart strain/failure (including pulmonary embolism and cor pulmonale), critical illness, renal failure, as well as advanced age. - References: 1. Suad MCKENZIE et.al. Eur Heart J. 2006:27:330-337. 2. Gurvinder RW, Gissel PARRISH. J. AM Prerna Cardiol: Cardiovasc Imag. 2009;2: 216- 225. Interpretive Data Last Revised Date: 2018. Blood 02/12/2025 11:2 6 AM CDT 02/12/2025 11:49 AM CDT us Gauri Atwood MD LAB BLOOD ORDERABLES Kinga bustos Result [facility] [id number] Department [place] [address] * (ABNORMAL) CBC with auto differential (02/12/2025 11:26 AM CDT) Pathologist [facility] WBC 7.63 3.80 - 9.90 K/cumm Hgb 12.1(L) 13.0 - 17.5 g/dL [facility] Hct 37.5(L) 38.9 - 50.3 % [facility] Plt 370 150 - 400 K/cumm [facility] MPV 9.0(L) 9.1 - 12.3 fL [facility] RBC 4.51 4.30 - 5.80 M/cumm [facility] MCV 83.1 81.3 - 96.4 fL [facility] MCH 26.8(L) 27.1 - 33.3 pg [facility] MCHC 32.3 32.3 - 35.7 g/dL [facility] RDW CV 14.6 11.1 - 14.9 % [facility] RDW SD 44.5 35.7 - 48.1 fL [facility] NRBC abs 0.00 0.00 - 0.01 K/cumm [facility] Blood 02/12/2025 11:2 6 AM CDT 02/12/2025 11:49 AM CDT Gauri Atwood MD LAB BLOOD ORDERABLES Kinga l Result Performing Organization Address [facility] de Phone Number JACK [address] [place] [address] * Protime-INR (02/12/2025 11:26 AM CDT) PT 12.7 10.2 - 13.5 sec INR 1.13 0.90 - 1.20 [facility] Comment: Interpretive data Oral anticoagulant therapeutic ranges: Venous thromboembolism prophylaxis or treatment: 2.0-3.0 CARDIOLOGY Standard range: 2.0-3.0 High-intensity range: 2.5-3.5 Refer to indication-specific guidelines for appropriate target ranges for prosthetic heart valve replacement. Current interpretive data was last revised on 2019. Blood 02/12/2025 11:2 6 AM CDT 02/12/2025 11:49 AM CDT Gauri Atwood MD LAB BLOOD ORDERABLES Kinga l Result Performing Organization Address [facility] Co de Phone Number [facility] [address] [facility] [place] [address] * (ABNORMAL) Comprehensive metabolic panel (02/12/2025 11:26 AM CDT) Sodium 132(L) 135 - 145 mmol/L Potassium, pl 4.1 3.3 - 4.9 mmol/L [facility] Chloride 95(L) 97 - 110 mmol/L [facility] CO2 25 22 - 32 mmol/L [facility] Anion gap 12 2 - 15 mmol/L [facility] BUN 10 6 - 25 mg/dL [facility] Creatinine 0.67(L) 0.80 - 1.30 mg/dL [facility] Glucose 100 70 - 199 mg/dL [facility] Comment: Interpretive Data Fasting glucose >/= 126 mg/dl is diagnostic for diabetes. Fasting is defined as no caloric intake for at least 8 hours. Fasting glucose between 100 mg/dl to 125 mg/dl is diagnostic of prediabetes. In a patient with classic symptoms of hyperglycemia or hyperglycemic crisis, a random glucose >/= 200 mg/dl is diagnostic for diabetes. In the absence of unequivocal hyperglycemia, results should be confirmed by repeat testing. The classification and Diagnosis of Diabetes Diabetes Care 2021; 46: S19-S40. Current interpretive data was last revised 2022. Calcium 9.4 8.5 - 10.3 mg/dL [facility] Bilirubin, total 0.4 0.1 - 1.2 mg/dL [facility] Protein, pl 7.7 6.5 - 8.5 g/dL [facility] Albumin 4.0 3.5 - 5.0 g/dL [facility] Alk phos 155(H) 40 - 130 Units/L [facility] ALT 13 7 - 55 Units/L [facility] AST 17 10 - 50 Units/L [facility] Blood 02/12/2025 11:2 6 AM CDT 02/12/2025 11:49 AM CDT us Gauri Atwood MD LAB BLOOD ORDERABLES Kinga l Result JACK [id number] [address] Department [place] [address] * XR Chest Pa Lateral 2 Vw (02/12/2025 11:23 AM CDT) Anatomical Region Laterality Modality Body, Chest N/A Computed Radiogr aphy 02/12/2025 11:3 8 AM CDT Impressions 02/12/2025 11:38 AM CDT No acute findings. Electronically signed by: Sinan Carter M.D. Narrative 02/12/2025 11:38 AM CDT EXAMINATION: XR CHEST PA LATERAL 2 VIEWS HISTORY: Chest pain COMPARISON: None. FINDINGS: Heart size and pulmonary vasculature normal. Multifocal bilateral calcified granulomas present. No airspace disease. Minimal degenerative changes present in the spine. No acute bony abnormality. Procedure Note Sinan Carter III, MD - 02/12/2025 EXAMINATION: XR CHEST PA LATERAL 2 VIEWS HISTORY: Chest pain COMPARISON: None. FINDINGS: Heart size and pulmonary vasculature normal. Multifocal bilateral calcified granulomas present. No airspace disease. Minimal degenerative changes present in the spine. No acute bony abnormality. IMPRESSION: No acute findings. Electronically signed by: Sinan Carter M.D. Gauri Atwood MD IMG XR PROCEDURES Final R esult * ECG 12 lead (02/12/2025 10:43 AM CDT) 02/12/2025 10:4 3 AM CDT Narrative [facility] - 02/12/2025 1:39 PM CDT Vent Rate: 70 bpm RR Interval: 847 msec VA Interval: 163 msec QRS Duration: 78 msec QT Interval: 400 msec QTC Interval: 421 msec P-R-T Girard: 84 - 72 - 88 degrees IMPRESSION: SINUS RHYTHM ANTEROSEPTAL MYOCARDIAL INFARCTION , OF INDETERMINATE AGE [40+ ms Q WAVE IN V1- V4] SIGNIFICANT BASELINE ARTIFACT ABNORMAL ECG Electronically Signed By: Marlin Maldonado MD Gauri Atwood MD ECG ORDERABLES Final Res ult [facility] * eGFR (01/26/2025 4:16 PM CDT) eGFR >90 >=60 mL/min/1. 73 m2 Comment: Interpretive Data Reference Interval Normal >/= 90 mL/min/1.73m2 Mildly decreased* 60 - 89 mL/min/1.73m2 Mildly to moderately decreased 45 - 59 mL/min/1.73m2 Moderately to severely decreased 30 - 44 mL/min/1.73m2 Severely decreased 15 - 29 mL/min/1.73m2 Kidney Failure < 15 mL/min/1.73m2 *Relative to young adult level Estimated glomerular filtration rate is determined by the 2020 CKD-EPI equation recommended by the National Kidney Foundation (A Unifying Approach to GFR Estimation: Recommendations of the NKF-ASK Task Force on Reassessing the Inclusion of Race in Diagnosing Kidney Disease, JASN 202). The CKD-EPI equation should not be used for patients with unstable renal function and has not been validated in children and those over 70. Current interpretive data was last reviewed 2021. Blood 01/26/2025 4:16 PM CDT 01/26/2025 5:31 PM CDT Ginny Estes NP LAB BLOOD ORDERABLES Final Result [facility] Department [place] [address] * (ABNORMAL) Differential, auto (01/26/2025 4:16 PM CDT) Pathologist [facility] Neutrophil abs 5.30 1.50 - 6.50 K/cumm Imm gran abs 0.03 0.00 - 0.10 K/cumm [facility] Lymphocyte abs 2.14 0.80 - 3.30 K/cumm [facility] Monocyte abs 1.09(H) 0.20 - 0.80 K/cumm [facility] Eosinophil abs 0.21 0.00 - 0.50 K/cumm [facility] Basophil abs 0.04 0.00 - 0.10 K/cumm [facility] Neutrophil pct 60.1 % [facility] Comment: Interpretive Data Percent cell count reference ranges are not reported, since discordance with absolute values may lead to misinterpretation of CBC data. Current Interpretive Data was last revised on 2017. Imm gran pct 0.3 % [facility] Comment: Interpretive Data Percent cell count reference ranges are not reported, since discordance with absolute values may lead to misinterpretation of CBC data. Current Interpretive Data was last revised on 2017. Lymphocyte pct 24.3 % JACK [facility] Comment: Interpretive Data Percent cell count reference ranges are not reported, since discordance with absolute values may lead to misinterpretation of CBC data. Current Interpretive Data was last revised on 2017. Monocyte pct 12.4 % JACK [facility] Comment: Interpretive Data Percent cell count reference ranges are not reported, since discordance with absolute values may lead to misinterpretation of CBC data. Current Interpretive Data was last revised on 2017. Eosinophil pct 2.4 % [facility]ACK [facility] Comment: Interpretive Data Percent cell count reference ranges are not reported, since discordance with absolute values may lead to misinterpretation of CBC data. Current Interpretive Data was last revised on 2017. Basophil pct 0.5 % [facility]ACK [facility] Comment: Interpretive Data Percent cell count reference ranges are not reported, since discordance with absolute values may lead to misinterpretation of CBC data. Current Interpretive Data was last revised on 2017. Blood 01/26/2025 4:16 PM CDT 01/26/2025 5:31 PM CDT Ginny Estes NP LAB BLOOD ORDERABLES Final Result [facility] Department [place] [address] * (ABNORMAL) Urinalysis reflex to microscopic and culture Urine, clean voided (01/26/2025 4:16 PM CDT) Color, ur Straw Yellow Clarity, ur Clear Clear [facility] Specific gravity, ur 1.008 1.003 - 1.030 [facility] pH, urine 6.0 [facility] Comment: Interpretive Data U rine pH is affected by diet, medications, systemic acid-base disturbances, and renal tubular function. pH may affect urinary stone formation. For example, urine pH below 6.0 may help reduce the tendency for calcium phosphate stones and pH greater than 6.0 may reduce the tendency for uric acid stone formation. Source: [facility] Current Interpretive Data was last revised on 2017 Protein, ur ql Negative Negative [facility] Glucose, ur ql Negative Negative [facility] Ketones, ur Negative Negative [facility] Bilirubin, ur Negative Negative [facility] Blood, ur 1+(A) Negative [facility] Urobilinogen, ur <2.0 <2.0 mg/dL [facility] Nitrite, ur Negative Negative [facility] Leukocyte esterase, ur Negative Negative [facility] UA reflex comment Reflex to microscopic UA will be performed. [facility] Urine, clean voided 01/26/2025 4:16 PM CDT 01/26/2025 5:15 PM CDT Ginny Estes NP LAB MICROBIOLOGY - [facility] ORDERABLES Final Result [facility] Department [place] [address] * (ABNORMAL) CBC with auto differential (01/26/2025 4:16 PM CDT) Pathologist [facility] WBC 8.81 3.80 - 9.90 K/cumm Hgb 13.1 13.0 - 17.5 g/dL [facility] Hct 39.2 38.9 - 50.3 % [facility] Plt 405(H) 150 - 400 K/cumm [facility] MPV 9.3 9.1 - 12.3 fL [facility] RBC 4.74 4.30 - 5.80 M/cumm [facility] MCV 82.7 81.3 - 96.4 fL [facility] MCH 27.6 27.1 - 33.3 pg [facility] MCHC 33.4 32.3 - 35.7 g/dL [facility] RDW CV 15.2(H) 11.1 - 14.9 % [facility] RDW SD 46.3 35.7 - 48.1 fL [facility] NRBC abs 0.00 0.00 - 0.01 K/cumm [facility] Blood 01/26/2025 4:16 PM CDT 01/26/2025 5:31 PM CDT Ginny Estes PRACTICE BILLING ASSOCIATE LAB BLOOD ORDERABLES Final Result Performing Organization Address [facility] de Phone Number [facility] [place] [address] * Urinalysis, microscopic only (01/26/2025 4:16 PM CDT) WBC, ur 0-5 0 - 5 /HPF RBC, ur 0-2 0 - 2 /HPF [facility] Culture Reflex Comment Reflex conditions for urine culture (WBC >10) not met. [facility] Urine, clean voided 01/26/2025 4:16 PM CDT 01/26/2025 5:15 PM CDT Ginny Estes PRACTICE BILLING ASSOCIATE LAB URINE ORDERABLES Final Result Performing Organization Address [facility] de Phone Number [facility] Department [place] [address] * Basic metabolic panel (01/26/2025 4:16 PM CDT) Sodium 136 135 - 145 mmol/L Potassium, pl 4.3 3.3 - 4.9 mmol/L [facility] Chloride 97 97 - 110 mmol/L [facility] CO2 28 22 - 32 mmol/L [facility] Anion gap 11 2 - 15 mmol/L [facility] BUN 12 6 - 25 mg/dL [facility] Creatinine 0.84 0.80 - 1.30 mg/dL [facility] Glucose 94 70 - 199 mg/dL [facility] Comment: Interpretive Data Fasting glucose >/= 126 mg/dl is diagnostic for diabetes. Fasting is defined as no caloric intake for at least 8 hours. Fasting glucose between 100 mg/dl to 125 mg/dl is diagnostic of prediabetes. In a patient with classic symptoms of hyperglycemia or hyperglycemic crisis, a random glucose >/= 200 mg/dl is diagnostic for diabetes. In the absence of unequivocal hyperglycemia, results should be confirmed by repeat testing. The classification and Diagnosis of Diabetes Diabetes Care 2021; 46: S19-S40. Current interpretive data was last revised 2022. Calcium 9.5 8.5 - 10.3 mg/dL [facility] Blood 01/26/2025 4:16 PM CDT 01/26/2025 5:31 PM CDT us Ginny Estes NP LAB BLOOD ORDERABLES Final Result JACK [facility] Department of Laboratories [place] [id number] * US Carotids Duplex Bilateral (01/20/2025 3:00 PM CDT) Anatomical Region Laterality Modality Vascular Bilateral Ultrasound 01/20/2025 2:29 PM CDT Narrative 01/24/2025 9:37 AM CDT [facility] - Department of Vascular Surgery, Vascular Laboratory [address] [place] [id number] Carotid Duplex Ultrasound Report Patient Name: KEKE PATE : 1955 (69y 2m) Study Date: 01/20/2025 2:29:19 PM Gender: M Tech: Location: [facility] Provider: KAYCEE CHILDERS Quality: Adequate Order Provider: KAYCEE CHILDERS PROCEDURES: Carotid Report: Carotid duplex examination of the extracranial arteries was performed using 2D, color and spectral Doppler. INDICATIONS: I65.23 Occlusion and stenosis of bilateral carotid arteries. MEASUREMENTS: Right Value Units Left Value Units RT Prox CCA PSV 101 cm/sec LT Prox CCA PSV 81 cm/sec RT Prox CCA EDV 16 cm/sec LT Prox CCA EDV 15 cm/sec RT Distal CCA PSV 95 cm/sec LT Distal CCA PSV 59 cm/sec RT Distal CCA EDV 21 cm/sec LT Distal CCA EDV 16 cm/sec RT Prox ICA PSV 80 cm/sec LT Prox ICA PSV 31 cm/sec RT Prox ICA EDV 23 cm/sec LT Prox ICA EDV 11 cm/sec RT Mid ICA PSV 88 cm/sec LT Mid ICA PSV 384 cm/sec RT Mid ICA EDV 26 cm/sec LT Mid ICA EDV 125 cm/sec RT Distal ICA PSV 61 cm/sec LT Distal ICA PSV 91 cm/sec RT Distal ICA EDV 22 cm/sec LT Distal ICA EDV 19 cm/sec RT ECA Prx PSV 99 cm/sec LT ECA Prx PSV 179 cm/sec RT ICA/CCA 0.92 ratio LT ICA/CCA 6.51 ratio RT VERT PSV 48 cm/sec LT VERT PSV 75 cm/sec FINDINGS: Performing Wall To Wall Carpet Installer: Lilia Hilliard RVT. Rt Common Carotid Artery: The plaque in the right CCA appears to be heterogeneous and irregular. Atherosclerotic changes of the right common carotid artery with no hemodynamically significant Doppler findings. Rt Internal Carotid Artery: The plaque in the right internal carotid artery appears to be heterogeneous and irregular. Atherosclerotic changes of the right internal carotid artery without hemodynamically significant Doppler findings. <50% stenosis. Rt External Carotid Artery: Patent right external carotid artery with evidence of atherosclerotic disease present. Rt Vertebral Artery: The right vertebral artery is patent with antegrade flow. Lt Common Carotid Artery: The plaque in the left CCA appears to be heterogeneous and irregular. Atherosclerotic changes of the left common carotid artery with no hemodynamically significant Doppler findings. Lt Internal Carotid Artery: The plaque in the left internal carotid artery appears to be heterogeneous and irregular. Significant atherosclerotic changes of the left internal carotid artery with elevated peak systolic velocity and end diastolic velocity, as above. >70% stenosis. Lt External Carotid Artery: Patent left external carotid artery with evidence of atherosclerotic disease present. Lt Vertebral Artery: The left vertebral artery is patent with antegrade flow. CONCLUSIONS: 1. The right internal carotid artery disease is consistent with a less than 50% stenosis. 2. The left internal carotid artery disease is consistent with a more than 70% stenosis. (known). 3. No evidence of hemodynamically significant stenosis in the common carotid artery bilaterally. 4. Normal, antegrade flow is noted in bilateral vertebral arteries. HISTORY: HLD, HTN, Smoker, carotid stenosis 01/09/25 CTA Lt ICA 80%. PREVIOUS STUDIES: No previous studies for comparison. DISCLAIMER: The study images and the final report will be retained in the patient chart by the Vascular Laboratory for the legally required time period. This chart constitutes the legal record of any testing performed. ATTESTATION: I have reviewed and interpreted the pertinent images and measurements of this study. I attest to the conclusions in the final report that is provided above. Electronically Signed By: Sundeep AUGUSTE OR 01/24/2025 8:59:23 AM CDT Procedure Note Sundeep Olivares MD - 01/24/2025 [facility] - Department of Vascular Surgery,Vascular Laboratory [address] [place] [address] Carotid Duplex Ultrasound Report Patient Name: KEKE PATE : 1955 (69y 2m) Study Date: 01/20/2025 2:29:19 PM Gender: M Tech: [facility]: [facility] [facility] Ref Provider: KAYCEE CHILDERS Quality: Adequate Order Provider: KAYCEE CHILDERS PROCEDURES: Carotid Report: Carotid duplex examination of the extracranial arterieswas performed using 2D, color and spectral Doppler. INDICATIONS: I65.23 Occlusion and stenosis of bilateral carotid arteries. MEASUREMENTS: Right Value Units Left Value Units RT Prox CCA PSV 101 cm/sec LT Prox CCA PSV 81 cm/sec RT Prox CCA EDV 16 cm/sec LT Prox CCA EDV 15 cm/sec RT Distal CCA PSV 95 cm/sec LT Distal CCA PSV 59 cm/sec RT Distal CCA EDV 21 cm/sec LT Distal CCA EDV 16 cm/sec RT Prox ICA PSV 80 cm/sec LT Prox ICA PSV 31 cm/sec RT Prox ICA EDV 23 cm/sec LT Prox ICA EDV 11 cm/sec RT Mid ICA PSV 88 cm/sec LT Mid ICA PSV 384 cm/sec RT Mid ICA EDV 26 cm/sec LT Mid ICA EDV 125 cm/sec RT Distal ICA PSV 61 cm/sec LT Distal ICA PSV 91 cm/sec RT Distal ICA EDV 22 cm/sec LT Distal ICA EDV 19 cm/sec RT ECA Prx PSV 99 cm/sec LT ECA Prx PSV 179 cm/sec RT ICA/CCA 0.92 ratio LT ICA/CCA 6.51 ratio RT VERT PSV 48 cm/sec LT VERT PSV 75 cm/sec FINDINGS: Performing Wall To Wall Carpet Installer: Lilia Hilliard RVT. Rt Common Carotid Artery: The plaque in the right CCA appears to beheterogeneous and irregular. Atherosclerotic changes of the right common carotid artery withno hemodynamically significant Doppler findings. Rt Internal Carotid Artery: The plaque in the right internal carotidartery appears to be heterogeneous and irregular. Atherosclerotic changes of the right internalcarotid artery without hemodynamically significant Doppler findings. <50% stenosis. Rt External Carotid Artery: Patent right external carotid artery withevidence of atherosclerotic disease present. Rt Vertebral Artery: The right vertebral artery is patent with antegradeflow. Lt Common Carotid Artery: The plaque in the left CCA appears to beheterogeneous and irregular. Atherosclerotic changes of the left common carotid artery withno hemodynamically significant Doppler findings. Lt Internal Carotid Artery: The plaque in the left internal carotid arteryappears to be heterogeneous and irregular. Significant atherosclerotic changes of theleft internal carotid artery with elevated peak systolic velocity and end diastolicvelocity, as above. >70% stenosis. Lt External Carotid Artery: Patent left external carotid artery withevidence of atherosclerotic disease present. Lt Vertebral Artery: The left vertebral artery is patent with antegradeflow. CONCLUSIONS: 1. The right internal carotid artery disease is consistent with a lessthan 50% stenosis. 2. The left internal carotid artery disease is consistent with a more than70% stenosis. (known). 3. No evidence of hemodynamically significant stenosis in the commoncarotid artery bilaterally. 4. Normal, antegrade flow is noted in bilateral vertebral arteries. HISTORY: HLD, HTN, Smoker, carotid stenosis 01/09/25 CTA Lt ICA 80%. PREVIOUS STUDIES: No previous studies for comparison. DISCLAIMER: The study images and the final report will be retained in the patientchart by the [facility] for the legally required time period. This chartconstitutes the legal record of any testing performed. ATTESTATION: I have reviewed and interpreted the pertinent images and measurements ofthis study. I attest to the conclusions in the final report that is provided above. Electronically Signed By: Sundeep KATZ 01/24/2025 8:59:23 AM CDT us Kaycee Childers NP IMG US PROCEDURES Final Result * CTA Head Neck W WO Contrast (01/09/2025 1:43 PM CDT) Anatomical Region Laterality Modality Head and Neck N/A Computed Tomogra phy 01/09/2025 3:29 PM CDT Impressions 01/11/2025 9:08 AM CDT Cervical left internal carotid bulb stenosis 80% by NASCET criteria redemonstrated No cervical right internal carotid stenosis by NASCET criteria . No intracranial large vessel occlusion or significant stenosis. No acute intracranial pathology Electronically signed by: Daniella Galindo M.D. Narrative 01/11/2025 9:08 AM CDT EXAMINATION: CTA HEAD NECK W WO CONTRAST HISTORY: carotid stenosis TECHNIQUE: Noncontrast CT of the head was obtained from skull base to vertex, according to standard protocol. Subsequently, CT angiogram of the neck and cocopah of Mariscal was performed after the uneventful intravenous administration of 122 mL Optiray 350 according to the head and neck angiography protocol with multiplanar reconstructions including thin MIPS obtained. 3-D postprocessing was performed by the technologist on a separate workstation, and submitted for review. Separate data acquisition was obtained. COMPARISON: CTA neck 07/28/2019 822 FINDINGS: HEAD CT FINDINGS: There is no acute intracranial hemorrhage. There is no noncontrast evidence of acute stroke. There is no vascular hyperdensity of the M1 segments or basilar artery. There are no periventricular and deep white matter hypodensities. There are no lacunar infarcts. Cerebral volume is typical for age. Ventricles are of normal size and morphology. There is no mass effect or midline shift. Marked opacified maxillary sinuses periosteal thickening, marked anterior ethmoids and moderate left frontal sinusitis again noted. ANGIOGRAPHIC FINDINGS: Atherosclerotic aortic arch is seen.. There is no significant stenosis of the origins of the great vessels. There is no geographic area of vascular paucity in the brain. Left anterior circulation: L CCA: no occlusion or significant stenosis L carotid bifurcation: Calcified plaque of opacification is seen but no occlusion or significant stenosis L ICA proximal: Soft and calcified plaque with 1.2 mm residual lumen and 80% stenosis by NASCET criteria redemonstrated. L ICA distal: Calcified plaque and mild cavernous segment stenosis is seen. L ICA terminus: no occlusion or significant stenosis L M1: no occlusion or significant stenosis L M2 branches: no occlusion or significant stenosis L A2: no occlusion or significant stenosis, aplastic A1 segment with patent anterior making artery noted. Right anterior circulation: R CCA: no occlusion or significant stenosis R carotid bifurcation: no occlusion or significant stenosis R ICA proximal: Calcified plaque is seen but there is no occlusion or significant stenosis R ICA distal: Calcified plaque with mild cavernous segment stenosis is seen R ICA terminus: no occlusion or significant stenosis R M1: no occlusion or significant stenosis R M2 branches: no occlusion or significant stenosis R A2: no occlusion or significant stenosis Posterior circulation: L Vertebral Artery: no occlusion or significant stenosis R Vertebral Artery: no occlusion or significant stenosis Basilar Artery: Hypoplastic with low splitting by no occlusion or significant stenosis L LAB SPECIALIST: no occlusion or significant stenosis R LAB SPECIALIST: no occlusion or significant stenosis, origin is present The major dural venous sinuses are patent. No cerebral aneurysm is seen. There is no evidence for an arteriovenous malformation. There is no suspicious cervical lymphadenopathy. There is no significant cervical spondylosis. Limited views of the lung apices are normal. Procedure Note Daniella Galindo MD - 01/11/2025 EXAMINATION: CTA HEAD NECK W WO CONTRAST HISTORY: carotid stenosis TECHNIQUE: Noncontrast CT of the head was obtained from skull base to vertex, according to standard protocol. Subsequently, CT angiogram of the neck and cocopah of Mariscal was performed after the uneventful intravenous administration of 122 mL Optiray 350 according to the head and neck angiography protocol with multiplanar reconstructions including thin MIPS obtained. 3-D postprocessing was performed by the technologist on a separate workstation, and submitted for review. Separate data acquisition was obtained. COMPARISON: CTA neck 07/28/2019 822 FINDINGS: HEAD CT FINDINGS: There is no acute intracranial hemorrhage. There is no noncontrast evidence of acute stroke. There is no vascular hyperdensity of the M1 segments or basilar artery. There are no periventricular and deep white matter hypodensities. There are no lacunar infarcts. Cerebral volume is typical for age. Ventricles are of normal size and morphology. There is no mass effect or midline shift. Marked opacified maxillary sinuses periosteal thickening, marked anterior ethmoids and moderate left frontal sinusitis again noted. ANGIOGRAPHIC FINDINGS: Atherosclerotic aortic arch is seen.. There is no significant stenosis of the origins of the great vessels. There is no geographic area of vascular paucity in the brain. Left anterior circulation: L CCA: no occlusion or significant stenosis L carotid bifurcation: Calcified plaque of opacification is seen but no occlusion or significant stenosis L ICA proximal: Soft and calcified plaque with 1.2 mm residual lumen and 80% stenosis by NASCET criteria redemonstrated. L ICA distal: Calcified plaque and mild cavernous segment stenosis is seen. L ICA terminus: no occlusion or significant stenosis L M1: no occlusion or significant stenosis L M2 branches: no occlusion or significant stenosis L A2: no occlusion or significant stenosis, aplastic A1 segment with patent anterior making artery noted. Right anterior circulation: R CCA: no occlusion or significant stenosis R carotid bifurcation: no occlusion or significant stenosis R ICA proximal: Calcified plaque is seen but there is no occlusion or significant stenosis R ICA distal: Calcified plaque with mild cavernous segment stenosis is seen R ICA terminus: no occlusion or significant stenosis R M1: no occlusion or significant stenosis R M2 branches: no occlusion or significant stenosis R A2: no occlusion or significant stenosis Posterior circulation: L Vertebral Artery: no occlusion or significant stenosis R Vertebral Artery: no occlusion or significant stenosis Basilar Artery: Hypoplastic with low splitting by no occlusion or significant stenosis L LAB SPECIALIST: no occlusion or significant stenosis R LAB SPECIALIST: no occlusion or significant stenosis, origin is present The major dural venous sinuses are patent. No cerebral aneurysm is seen. There is no evidence for an arteriovenous malformation. There is no suspicious cervical lymphadenopathy. There is no significant cervical spondylosis. Limited views of the lung apices are normal. IMPRESSION: Cervical left internal carotid bulb stenosis 80% by NASCET criteria redemonstrated No cervical right internal carotid stenosis by NASCET criteria . No intracranial large vessel occlusion or significant stenosis. No acute intracranial pathology Electronically signed by: Daniella Galindo M.D. Sundeep Olivares MD IMG CT PROCEDURES Final Resu lt * PSA screen (12/10/2020 10:16 AM CDT) PSA-Total 0.49 <=5.40 ng/mL [facility] (NILDA) Comment: Interpretive Data AGE SEX REFERENCE INTERVAL 0 minutes-150 years Female None 0 minutes-49 years Male None 50-59 years Male 0-3.90 60-69 years Male 0-5.40 70-79 years Male 0-6.20 80-150 years Male 0-6.20 Current interpretive data last revised 2018. Testing performed by: [facility], [address] [place] [address], [place]., [address] Blood specimen (specimen) 12/10/2020 10:16 AM CDT 12/10/2020 3:07 PM CDT Satnam Swartz MD LAB BLOOD ORDERABLES Final Resu lt JACK BINGHAM (NILDA) 1 [facility] [place] [address] * COLONOSCOPY IMAGES (10/13/2014) Anatomical Region Laterality Modality Other Narrative 10/13/2014 Ordered by an unspecified provider. [facility] Provider GI PROCEDURE ORDERABLES F inal Result * LUNG COMPUTED TOMOGRAPHY (CT) (10/13/2013 12:27 PM CDT) Anatomical Region Laterality Modality N/A Computed Tomogra phy 10/13/2013 12:2 7 PM CDT Narrative 10/17/2013 12:47 AM CDT DATE OF EXAM: Oct 13 2013 12:27PM Acc#: [id number] ECT 0363 - CT Lung Cancer Screening DIAGNOSIS: RESP CA SCREENING CLINICAL HISTORY: LUNG CANCER RESULT: \ CT LUNG CANCER SCREENING: HISTORY: 40-year smoker, three packs per day. A noncontrast screening low dose CT chest obtained per protocol 3 mm interval. - Mild centrilobular emphysema is noted with upper lobe predominance. Large central airways are patent with mild bronchial thickening from base to apex. No consolidation or effusion is seen. Calcified granulomas are seen in superior segment right lower lobe, left apex, and left posterior base. There are two tiny right posterior basal subpleural solid 1 mm nodules on image 56, slice position 216 which are adjacent to granulomas and thus could be noncalcified granulomas. A small ovoid 4 x 5 mm ground glass nodular opacity is seen superimposed on a left posterior basal pulmonary arterial branch at image 60, slice position 228 and coronal image 64, series 4 which has a vertical diameter of 7 mm. This probably represents focal vascular ectasia but it is difficult to exclude a superimposed nodule. Thus annual low dose CT for two years recommended and consider annual low dose CT until patient is no longer eligible for definitive treatment. There are calcified nodes in both denilson, subaortic, right lower paratracheal, and subcarinal lesion. Normal heart size is noted. Ectatic ascending aorta measures 3.3 cm in diameter with mild calcified plaque, most prominent in thearch. Mild to moderate three-vessel coronary artery calcification is universal along the LAD. There are bilateral axillary nodes which measure up to 8 mm on the left, smaller right using short axis diameter. The imaged upper abdomen is not remarkable. IMPRESSION: \ 1. SMALL NODULAR DENSITY AT LEFT POSTEROBASAL PULMONARY ARTERY MAY BE VASCULAR THOUGH CONSIDER FOLLOW-UP, ABOVE. 2. TWO RIGHT BASAL 1 MM SUBPLEURAL NODULES ADJACENT TO GRANULOMA. THESE COULD BE ASSESSED ON ANNUAL LOW DOSE CT FOR TWO YEARS. 3. MILD CENTRILOBULAR EMPHYSEMA. 4. CORONARY ARTERY CALCIFICATION. 5. OLD GRANULOMATOUS DISEASE. CITY EDITOR: [id number] TRANSCRIBE DATE/TIME: Oct 13 2013 4:58P RADIOLOGIST: DANIELLA GALINDO M.D. READ ON: Oct 13 2013 2:42P ORDERING DR: SATNAM SWARTZ M.D. THIS DOCUMENT HAS BEEN ELECTRONICALLY SIGNED BY: DANIELLA GALINDO M.D. ON: Oct 17 2013 12:47A Requesting Procedure Note Provider, MD Joellen - 09/17/2016 DATE OF EXAM: Oct 13 2013 12:27PM Acc#: [id number] ECT 0363 - CT Lung Cancer Screening DIAGNOSIS: RESP CA SCREENING CLINICAL HISTORY: LUNG CANCER RESULT: \ CT LUNG CANCER SCREENING: HISTORY: 40-year smoker, three packs per day. A noncontrast screening low dose CT chest obtained per protocol 3 mm interval. - Mild centrilobular emphysema is noted with upper lobe predominance. Large central airways are patent with mild bronchial thickening from base to apex. No consolidation or effusion is seen. Calcified granulomas are seen in superior segment right lower lobe, left apex, and left posterior base. There are two tiny right posterior basal subpleural solid 1 mm nodules on image 56, slice position 216 which are adjacent to granulomas and thus could be noncalcified granulomas. A small ovoid 4 x 5 mm ground glass nodular opacity is seen superimposed on a left posterior basal pulmonary arterial branch at image 60, slice position 228 and coronal image 64, series 4 which has a vertical diameter of 7 mm. This probably represents focal vascular ectasia but it is difficult to exclude a superimposed nodule. Thus annual low dose CT for two years recommended and consider annual low dose CT until patient is no longer eligible for definitive treatment. There are calcified nodes in both denilson, subaortic, right lower paratracheal, and subcarinal lesion. Normal heart size is noted. Ectatic ascending aorta measures 3.3 cm in diameter with mild calcified plaque, most prominent in thearch. Mild to moderate three-vessel coronary artery calcification is universal along the LAD. There are bilateral axillary nodes which measure up to 8 mm on the left, smaller right using short axis diameter. The imaged upper abdomen is not remarkable. IMPRESSION: \ 1. SMALL NODULAR DENSITY AT LEFT POSTEROBASAL PULMONARY ARTERY MAY BE VASCULAR THOUGH CONSIDER FOLLOW-UP, ABOVE. 2. TWO RIGHT BASAL 1 MM SUBPLEURAL NODULES ADJACENT TO GRANULOMA. THESE COULD BE ASSESSED ON ANNUAL LOW DOSE CT FOR TWO YEARS. 3. MILD CENTRILOBULAR EMPHYSEMA. 4. CORONARY ARTERY CALCIFICATION. 5. OLD GRANULOMATOUS DISEASE. CITY EDITOR: MOISES TRANSCRIBE DATE/TIME: Oct 13 2013 4:58P RADIOLOGIST: DANIELLA GALINDO M.D. READ ON: Oct 13 2013 2:42P ORDERING DR: SATNAM SWARTZ M.D. THIS DOCUMENT HAS BEEN ELECTRONICALLY SIGNED BY: DANIELLA GALINDO M.D. ON: Oct 17 2013 12:47A Requesting us Historical Provider MD MALIN CT PROCEDURES Final R esult from Last 3 Months or Most Recently Relevant to Health Maintenance Additional Health Concerns Active Problems Noted Date Diagnosed Date Autogenerated Problem 01/09/2025 Insurance [employer] [id number] [employer] Care Teams Maintenance Supervisor Relationship Specialty Start Date End Date Satnam Swartz MD PCP - General 12/06/19
[2025-03-31 12:47] LABS: Prostate Specific Antigen 0.7 ng/mL (< OR = 4.0)
== END 2025-03-29 14:49 | disposition home or self-care (01) ==
PROVIDERS: PCP Internal Medicine; Visit Provider Internal Medicine
DX: R06.00 Dyspnea, unspecified (principal); R07.9 Chest pain, unspecified; R79.1 Abnormal coagulation profile; Z12.5 Encounter for screening for malignant neoplasm of prostate; J43.2 Centrilobular emphysema; M48.54XA Collapsed vertebra, not elsewhere classified, thoracic region, initial encounter for fracture
CPT/HCPCS: 36415; 71046; 71275; 80053; 82550; 82553; 83880; 84153; 84484; 85027; 85380; G0103; Q9967

== ENCOUNTER 2025-04-12 12:43 | Outpatient (CLI) | payer MEDICARE, SELFPAY | END 2025-04-12 12:44 | disposition home or self-care (01) | LOC: CHSCARD 12:46 | PROVIDERS: PCP Internal Medicine; Visit Provider Internal Medicine | DX: R06.00 Dyspnea, unspecified (principal); R07.9 Chest pain, unspecified; J98.8 Other specified respiratory disorders; R94.2 Abnormal results of pulmonary function studies | CPT/HCPCS: 94060; 94726; 94729 ==